=== PATIENT | male | born 1985 | race Caucasian/White ===

== ENCOUNTER 2018-12-24 21:57 | Emergency (ER) | payer BC, SELFPAY ==
[2018-12-24 21:59] VITALS: BP 129/79; PULSE 65; RESP 16; TEMP 35.9; O2SAT 99; BMI 21.7
--- NOTE | 2018-12-24 22:07 | ED.DCSUM_ITS ---
- ER Visit Summary Date of Service: 12/24/18 Chief Complaint: Left flank pain History of Present Illness: The patient is a 33 M with a history of kidney stones presents with acute onset left flank pain that happened 3 hours ago. He feels the exact same as prior kidney stones. Denies new or concerning features. Denies hematuria. He is nauseated but has not vomited. Current severity is moderate. Physical Examination: Those are within normal limits. He is in mild distress due to pain. Mild flank percussion tenderness on the left but no anterior abdominal tenderness. Test Results: None urinalysis is unremarkable. CT flank negative for ureteral stone. Small stone in the kidney but ureter looks clear. Emergency Department Course and Treatment: He was medicated and is pain-free on reexamination. CT negative for ureteral stone but it is possible that he passed one already. I cannot say with certainty. No secondary signs but his pain did start shortly prior to arrival. He looks well and feels well on reexamination. I feel he can safely be discharged home. Treatment Plan: Follow-up with urology Disposition: Stable, home Impression: Left flank pain, resolved This note was generated with [employer] software. It may contain incorrect words, spelling, and punctuation that were not noted in review of the chart prior to signing ED Disposition - Plan for ED Patient: Instructions: ED Stone Renal Passed Referrals: Ramakrishna Talavera MD [STAFF PHYSICIAN] -
[2018-12-24] MEDS: Ondansetron 4 MG/2 ML Vial IV (22:27)
[2018-12-24] MEDS: Morphine 4 MG/ML Syringe IV (22:27)
[2018-12-24] MEDS: Ketorolac 30 MG/ML Syringe IV (22:27)
[2018-12-24] MEDS: 0.9% Normal Saline 1,000 ML 250 ML IV (22:27)
--- NOTE | 2018-12-24 22:34 | CT_ITS ---
STUDY: CT ABDOMEN AND PELVIS WITHOUT CONTRAST REASON FOR EXAM: Male, 33 years old. Left flank pain beginning tonight. History of kidney stones with previous lithotripsy and ureteral stenting. RADIATION DOSAGE (If Supplied By Facility): CTDIvol = ( 6.33 ) mGy, DLP = ( 316.51 ) mGycm TECHNIQUE: Transaxial images were obtained from the dome of the diaphragm to the symphysis pubis without oral contrast, and without intravenous contrast. Sagittal and coronal images were reconstructed. Individualized dose optimization techniques were used for this CT. COMPARISON: September 06, 2017. FINDINGS: The visualized lung bases are unremarkable. The visualized portions of the heart are within normal limits. Normal liver. Normal gallbladder and extrahepatic biliary system. Normal spleen. There is 1.7 cm splenule in the splenic hilum. Normal pancreas. Normal bilateral adrenal glands. The right kidney is of normal size and cortical thickness. There are multiple renal calculi. The largest in the lower pole measures 3 mm. There is extrarenal pelvis without ureterectasis. The left kidney is of normal size and cortical thickness. There is a 3 mm calcification lower pole calyx. There is no hydronephrosis. Normal left ureter. Normal visualized stomach. Normal small intestine. Normal colon. The appendix is visualized and appears normal. Normal abdominal aorta. Normal inferior vena cava. Normal retroperitoneum. The urinary bladder is incompletely distended but grossly normal. Annual prostate and seminal vesicles. There is phlebolith left pelvis. There is no pelvic lymphadenopathy. No free air or free fluid is seen in the peritoneal cavity. There is an umbilical hernia of omental fat. The abdominal wall is otherwise unremarkable. Normal osseous structures. CT/Abdomen/Pelvis without Cont IMPRESSION: 1. Absence of the left ureteral stenting seen on the prior CT. There is a stable left renal calculus. 2. Multiple nodular obstructing right renal calculi essentially unchanged from prior study. 3. No evidence of acute intra-abdominal or pelvic abnormality. 4. No other major interval change. Electronically Signed: Jarrod Ma DO at 23:12 EST Tel [phone], Service support ,
[2018-12-24 22:40] LABS: Bacteria 0 SEEN /hpf (None Seen); Color, Urine Yellow (Yellow); Glucose, Dipstick Normal (Normal); Ketone-Dipstick Negative (Negative); Leukocyte Esterase-Dipstick Negative /ul (Negative); Mucous, Urine 0 SEEN /hpf (<or=2+); Nitrite-Dipstick Negative (Negative); Occult Blood-Urine Negative /ul (Negative); Protein-Dipstick Negative (Negative); Red Blood Cells-Urine 0 SEEN /hpf (0-5); Specific Gravity, Urine 1.015 (1.002-1.030); Squamous Epithelial Cells - UA 0 SEEN /hpf (0-5); Urine Bilirubin Dipstick Negative (Negative); Urine Clarity Clear (Clear); Urine Urobilinogen Normal (Normal)
[2018-12-24 22:50] LABS: White Blood Cells 0-5 SEEN /hpf (0-5)
[2018-12-24 23:38] VITALS: BP 98/72; PULSE 51; RESP 16; O2SAT 99
== END 2018-12-24 23:40 | disposition home or self-care (01) ==
LOC: ED 22:34
PROVIDERS: Emergency Provider Emergency Medicine
DX: R10.9 Unspecified abdominal pain (principal); R11.0 Nausea; M54.9 Dorsalgia, unspecified; Z87.442 Personal history of urinary calculi
CPT/HCPCS: 74176; 81001; 96361; 96374; 96375; 99283; J7030; A4216; J2405

== ENCOUNTER 2019-12-29 11:18 | Emergency (ER) | payer BC, SELFPAY ==
[2019-11-01 10:06] VITALS: BMI 21.7
[2019-12-29 11:18] VITALS: BP 122/86; PULSE 112; RESP 16; TEMP 36.1; O2SAT 98; BMI 22.6
--- NOTE | 2019-12-29 11:46 | RAD_ITS ---
STUDY: X-RAY - RIGHT SHOULDER REASON FOR EXAM: Male, 34 years old. fall. very painful shoulder TECHNIQUE: 4 view(s) of the shoulder. COMPARISON: None. FINDINGS: Normal glenohumeral articulation. There is no widening of the coracoclavicular distance. There is widening of the AC joint, but without displacement of the clavicle or widening of the coracoclavicular distance, consistent with a Type II acromioclavicular joint separation. Normal acromion. Normal humeral head and visualized proximal humerus. The soft tissue structures are unremarkable. Normal visualized pulmonary apex. RAD/Shoulder min 2 Views IMPRESSION: Grade 2 acromioclavicular joint separation. Electronically Signed: Fernando Botello MD at 12:34 EDT Tel , Service support ,
[2019-12-29] MEDS: Ondansetron ODT 4 MG Tablet PO (11:50)
[2019-12-29] MEDS: morphine 10 MG/ML Syringe SC (11:50)
--- NOTE | 2019-12-29 12:30 | ED.VIS.GEN ---
History of Present Illness Chief Complaint: Upper Extremity Injury Informant: Patient Onset: Today Maximum Severity: Mild Narrative: Right shoulder pain after fall today patient was running after she P inadvertently fell and landed directly on his right shoulder his pain directly over the shoulder, no head neck chest abdominal pain no past history other complaints Past Medical History - Allergies and Home Meds Allergies/Adverse Reactions: Allergies hydrocodone [From [place]] Adverse Reaction (Verified 12/24/18 21:59) Vomiting Primary Care Physician: Care Physician,No Primary [Primary Care Provider] - Past Medical History: None Smoking Status: Former smoker Review of Systems General: Denies: Chills, Fever, Sweats Eyes: Denies: Visual changes - bilaterally, Diplopia ENT: Denies: Rhinorrhea, Sore throat Cardiovascular: Denies: Chest pain, Palpitations Respiratory: Denies: Dyspnea, Cough, Dyspnea on exertion Gastrointestinal: Denies: Abdominal pain, Nausea, Vomiting, Diarrhea, Melena, Hematochezia Genitourinary: Denies: Dysuria, Hematuria, Frequency Musculoskeletal: Reports: Extremity Pain. Denies: Back pain Skin: Denies: Rash, Wounds Neurological: Denies: Headache, Weakness, Numbness Physical Exam Vital Signs/Narrative: Vital Signs Temp Pulse Resp BP Pulse Ox 12/29/19 11:18 97 F L 112 H 16 122/86 H 98 General: Well nourished, Well developed, No Acute Distress Head: Normocephalic, Atraumatic Eyes: Perrl, EOMI ENT: Moist mucous membranes, No rhinorrhea Neck: Supple, Nontender Cardiovascular: Regular rate, Regular rhythm, No murmurs Respiratory: No distress, CTA bilaterally, Chest nontender Abdomen: Soft, Nontender, Nondistended, Normal bowel sounds Back: Nontender, Normal Inspection Extremities: No edema, - - Patient has marked tenderness to the distal shoulder over the distal clavicle Skin: Normal color, No rash Neurological: Alert, Oriented x3, Cranial nerves II-XII grossly intact, Normal Strength, Normal Sensation Psychological: Normal affect, Normal Mood Diagnostic/Tx/Re-eval - Medical Decision Making Differentials extensive would certainly include fracture or other issues, He is medicated with morphine, x-ray of the shoulder shows what appears to be a grade 3 AC joint separation see those reports, he is fitted with a sling and swath, all that was discussed with him Ignacio Justin as rescue medicine and follow-up with his orthopedic surgeon of choice 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
[2019-12-29 13:21] VITALS: RESP 16
--- NOTE | 2019-12-29 13:22 | ED.RN ---
REVIEWED D/C INSTRUCTIONS, FOLLOW UP CARE, PRESCRIPTIONS, AND S/S THAT WOULD WARRANT A RETURN TO THE ED WITH PT. PT VERBALIZED AN UNDERSTANDING AND DENIES FURTHER QUESTIONS FOR THIS RN. PT SKIN P/W/D, RESP EVEN AND UNLABORED, PT A&O X 3, NO DISTRESS NOTED. PT AMBULATED OUT OF ED, GAIT STEADY.
== END 2019-12-29 13:23 | disposition home or self-care (01) ==
LOC: ED 12:59
PROVIDERS: Emergency Provider Emergency Medicine
DX: S43.101A Unspecified dislocation of right acromioclavicular joint, initial encounter (principal); W19.XXXA Unspecified fall, initial encounter; Y93.02 Activity, running; Y92.9 Unspecified place or not applicable; Z87.891 Personal history of nicotine dependence
CPT/HCPCS: 73030; 96372; 99283

== ENCOUNTER 2020-02-26 23:51 | Emergency (ER) | payer BC, SELFPAY ==
[2020-02-26 23:52] VITALS: BP 126/69; PULSE 65; RESP 18; TEMP 36.2; O2SAT 99; BMI 22.5
--- NOTE | 2020-02-27 00:23 | ED.DCSUM_ITS ---
- ER Visit Summary Date of Service: 02/27/20 Chief Complaint: Foreign body right eye History of Present Illness: The patient is a 34 M with foreign body sensation to his right eye. He was working on a dirt bike. No contact lens use. Tetanus up-to-date. Physical Examination: Slit-lamp exam showed a punctate foreign body at 9:00 over the right cornea. Visual acuity unremarkable. Otherwise exam unremarkable. Test Results: None performed Emergency Department Course and Treatment: Tetracaine and fluorescein applied. Foreign body noted as above. No other lesions noted. We are out of eye burrs. I attempted to remove the foreign body with a 30-gauge needle. Patient was anxious and did move his eye frequently. I made one attempt but it was unsuccessful. I did not make any further attempts. He will be referred to ophthalmology. He was started on erythromycin. Treatment Plan: As above Disposition: Discharge Impression: Foreign body right cornea This note was generated with [employer] dictation software. It may contain incorrect words, spelling, and punctuation that were not noted in review of the chart prior to signing ED Disposition - Plan for ED Patient: [facility] [Primary Care Provider] -
--- NOTE | 2020-02-27 00:24 | ED.DEP ---
ED Disposition - Plan for ED Patient: Instructions: ED Foreign Body Cornea W [place] Ring Referrals: Dung Dooley MD [STAFF PHYSICIAN] - (in the morning)
[2020-02-27] MEDS: Erythromycin Base 1 OPTH.TUBE 1 APPLIC RIGHT EYE (00:28)
[2020-02-27] MEDS: Tetracaine 0.5% Ophthalmic Bottle 1 DRP EACH EYE (00:29)
[2020-02-27] MEDS: Fluorescein 1 MG STRIP 1 STRIP EACH EYE (00:29)
[2020-02-27 00:33] VITALS: BP 122/70; PULSE 64; RESP 16; O2SAT 98
== END 2020-02-27 00:37 | disposition home or self-care (01) ==
LOC: ED 02-27 00:36
PROVIDERS: Emergency Provider Emergency Medicine
DX: T15.01XA Foreign body in cornea, right eye, initial encounter (principal); X58.XXXA Exposure to other specified factors, initial encounter; Y93.9 Activity, unspecified; Y92.9 Unspecified place or not applicable
CPT/HCPCS: 99283

== ENCOUNTER 2020-07-04 19:03 | Emergency (ER) | payer OTHER, BC, SELFPAY ==
[2020-07-04 19:05] VITALS: BP 137/68; PULSE 84; RESP 16; TEMP 36.3; O2SAT 98; BMI 23.3
--- NOTE | 2020-07-04 19:40 | ED.VISSUMM ---
- ER Visit Summary Date of Service: 07/04/20 Chief Complaint: Rash and itching History of Present Illness: The patient is a 34 M status post bladder stimulator [facility] yesterday. He is on Bactrim and started having a rash and itching. No tongue or lip swelling. No prior history. Another family member has a sulfa allergy. Physical Examination: Well-appearing young male. Vital signs stable afebrile. Pulse ox 90% on room air no signs hypoxia. HEENT exam unremarkable. No lip or tongue swelling. No trouble breathing swallowing. No drooling. No stridor. Neck nontender. Lungs clear to auscultation bilaterally. Heart regular rhythm no murmur. Abdomen soft nontender normal bowel sounds no peritoneal signs. Extremities moves all 4. Calves nontender. Left flank and back there is a bladder stimulator placed. Wound looks dry and clean. Neurologically is awake alert. Test Results: None Emergency Department Course and Treatment: Benadryl 50 mg. Stop the Bactrim. Treatment Plan: Keflex twice daily for 7 days. Stop the Bactrim most likely allergic to it. Benadryl as needed. Return if worse. Follow-[facility] with [facility]. Disposition: dc Impression: Acute allergic reaction secondary to Bactrim And is post recent bladder stimulator surgery This note was generated with [employer] dictation software. It may contain incorrect words, spelling, and punctuation that were not noted in review of the chart prior to signing ED Disposition - Plan for ED Patient: [facility]errals[facility] [Primary Care Provider] -
--- NOTE | 2020-07-04 19:43 | ED.DEP ---
ED Disposition - Plan for ED Patient: Disposition: Home or Assisted Living Instructions: ED General Allergic Reactions Prescriptions: Cephalexin [Keflex] 500 mg PO Q12 #14 cap Prescription Printed [facility]errals[facility] [Primary Care Provider] - As Needed Additional Instructions: Stop the Bactrim most likely you are allergic to sulfa drugs. Keflex twice a day for 7 days. Benadryl as needed for itching and allergic reaction. Follow-up with the physicians I did your procedure.
[2020-07-04] MEDS: DiphenhydrAMINE 25 MG Capsule 50 MG PO (19:57)
== END 2020-07-04 19:58 | disposition home or self-care (01) ==
PROVIDERS: Emergency Provider Emergency Medicine
DX: L27.0 Generalized skin eruption due to drugs and medicaments taken internally (principal); T36.8X5A Adverse effect of other systemic antibiotics, initial encounter; Y92.9 Unspecified place or not applicable; Z98.890 Other specified postprocedural states
CPT/HCPCS: 99283

== ENCOUNTER 2020-07-18 07:32 | Emergency (ER) | payer OTHER, BC, SELFPAY ==
[2020-07-18 07:34] VITALS: BP 117/77; PULSE 80; RESP 16; TEMP 36.3; O2SAT 99; BMI 21.9
--- NOTE | 2020-07-18 07:48 | CT_ITS ---
STUDY: CT BRAIN WITHOUT CONTRAST REASON FOR EXAM: Male, 34 years old. Cephalgia, headache, nausea/vomiting, photophobia since last night. Bladder pacemaker placed yesterday. RADIATION DOSAGE (If Supplied By Facility): CTDIvol = ( 44.99 ) mGy, DLP = ( 829.85 ) mGycm TECHNIQUE: Transaxial CT imaging of the brain was performed without administration of intravenous contrast material. Individualized dose optimization techniques were used for this CT. COMPARISON: No relevant priors. FINDINGS: Normal soft tissue structures. Normal calvarium. Normal size ventricles and extra-axial spaces for the patient''s age. Normal white matter tracts of the cerebral hemispheres. Normal basal ganglia and thalami. Normal brainstem. Normal cerebellum. There is no intracranial hemorrhage. There are no findings of an acute ischemic infarction. Mild mucosal thickening of the paranasal sinuses. CT/Brain/Head without Contrast IMPRESSION: Normal unenhanced CT scan of the brain. Electronically Signed: Jean-Claude Han MD at 8:40 EDT , Service support ,
--- NOTE | 2020-07-18 07:49 | ED.VISSUMM ---
- ER Visit Summary Date of Service: 07/18/20 Chief Complaint: [Headache] History of Present Illness: The patient is a 34 M [presents the emergency department complaint of a headache that started yesterday around 10 PM. Patient states that it did come on somewhat gradually. Patient states the headache waxes and wanes in intensity and it is throbbing. Currently rates it a 7 or 8 out of 10. Patient complains of photophobia as well as loud sounds bothering him. Patient's had nausea and has vomited several times. He has had migraines before but never quite like this. He describes the headache is diffuse. He denies any falls or head injuries. Incidentally he had a procedure yesterday [place] the [facility] to have a bladder pac[place] placed. He denies any difficulty urinating. Patient eyes fever or recent illness.] Physical Examination: [HEENT-PERRLA, EOMI. Cranial nerves II through XII grossly intact. TMs clear. Mucous membranes moist. No adenopathy. Cardiovascular-regular rate and rhythm without murmur or ectopy Lungs-clear to auscultation, chest wall stable without crepitus or subcu emphysema Abdomen-normoactive bowel sounds, soft, nontender, no rebound or rigidity, no peritoneal signs. Neuro nkjl-[id number] and heel lloyd testing within normal limits, negative Romberg, negative , Fundi benign Extremities-intact ?4, normal range of motion, normal pulses, atraumatic] Test Results: [CT scan of the brain without contrast was normal] Emergency Department Course and Treatment: [IV line established on arrival. Patient given Reglan, Benadryl, Toradol, and a liter normal saline fluid bolus. Patient's headache resolved.] Treatment Plan: [Patient advised to push fluids and follow-up with primary care physician in 3 to 5 days. Patient advised to return if worsening headache, difficulty with vision or speech or condition should worsen anyway.] Disposition: [Discharged] Impression: [Migrainous cephalgia] This note was generated with [employer] dictation software. It may contain incorrect words, spelling, and punctuation that were not noted in review of the chart prior to signing ED Disposition - Plan for ED Patient: Referrals: [facility] [Primary Care Provider] -
[2020-07-18] MEDS: Ketorolac 30 MG/ML Syringe IV (08:04)
[2020-07-18] MEDS: Metoclopramide 10 MG/2 ML Vial IV (08:06)
[2020-07-18] MEDS: DiphenhydrAMINE 50 MG/ML Syringe 25 MG IV (08:08)
[2020-07-18] MEDS: 0.9% Normal Saline 1,000 ML 1000 ML IV (08:09)
--- NOTE | 2020-07-18 08:24 | ED.RN ---
pt returned from ct scan. feels much improved
--- NOTE | 2020-07-18 08:46 | DCINST.ED_ITS ---
ED Disposition - Plan for ED Patient: Instructions: Preventing Migraine Headaches: Triggers, ED, Migraine (Classical) Referrals: [facility] [Primary Care Provider] - 3-5 Days
--- NOTE | 2020-07-18 08:46 | ED.DEP ---
ED Disposition - Plan for ED Patient: Instructions: Preventing Migraine Headaches: Triggers, ED, Migraine (Classical) Referrals: [facility] [Primary Care Provider] - 3-5 Days
[2020-07-18 09:06] VITALS: BP 110/65; PULSE 78; RESP 16; O2SAT 98
== END 2020-07-18 09:10 | disposition home or self-care (01) ==
LOC: ED 07:57
PROVIDERS: Emergency Provider Emergency Medicine
DX: G43.909 Migraine, unspecified, not intractable, without status migrainosus (principal); Z87.442 Personal history of urinary calculi; Z87.891 Personal history of nicotine dependence
CPT/HCPCS: 70450; 96361; 96374; 96375; 99283; J7030; A4216

== ENCOUNTER 2022-12-26 03:18 | Emergency (ER) | payer OTHER, SELFPAY ==
[2022-12-26 03:19] VITALS: BP 125/83; PULSE 67; RESP 18; TEMP 36.6; O2SAT 99; BMI 23.4
--- NOTE | 2022-12-26 03:22 | RAD_ITS ---
EXAM: XR RIGHT WRIST COMPLETE, 3 OR MORE VIEWS CLINICAL INDICATION: Trauma TECHNIQUE: Frontal, lateral and oblique views of the right wrist. This report was created using [employer] report generation technology. COMPARISON: None. FINDINGS: BONES/JOINTS: Small corticated bony structure adjacent to the ulnar styloid. No acute fracture. No subluxation. Normal alignment. Preservation of the joint space. No sclerotic or destructive changes observed. SOFT TISSUES: Unremarkable. No soft tissue swelling or gas. No radiopaque foreign body. RAD/Wrist min 3 Views IMPRESSION: Small corticated bony structure adjacent to the ulnar styloid. Differential diagnosis includes accessory ossicle, ununited ossification center, or old fracture. No definite acute fracture. Electronically Signed: Shubham Lovelcae MD at 4:30 EST ,
--- NOTE | 2022-12-26 03:36 | EDS_ITS ---
HPI History of Present Illness Chief Complaint: Upper Extremity Injury Narrative Narrative: About 1800 yesterday patient tripped and fell on outstretched hand. He has pain in the dorsal medial aspect of his right wrist. He is right-hand dominant. He has broken bones before but denies known prior injury to this hand or wrist. He never hit his head. No other injury or pain. The fall was due to a mechanical occurrence and was not syncope. No anticoagulation. Moving or pressing makes it worse and rest makes it better. PFSH PFS Medical History Kidney stone Panic attack Home Medications citalopram 40 mg tablet 60 mg PO DAILY 12/29/19 [History Last Taken 07/17/20] tamsulosin 0.4 mg capsule 0.4 mg PO DAILY 12/26/22 [History Last Taken Unknown] Allergy/AdvReac Type Severity Reaction Status Date / Time sulfamethoxazole Allergy Itching Verified 07/18/20 07:34 [From Bactrim] trimethoprim [From Bactrim] Allergy Itching Verified 07/18/20 07:34 hydrocodone [From [place]] AdvReac Vomiting Verified 12/24/18 21:59 Surgical History H/O lithotripsy Social History Smoking Status: Current every day smoker tobacco type: cigarettes ROS ROS ED Cardiovascular Cardiovascular: Denies chest pain, palpitations or racing heartbeat Gastrointestinal Gastrointestinal: Denies nausea or vomiting Musculoskeletal Musculoskeletal: Reports other Details: Wrist pain as in history of present illness. ; Denies back pain or neck pain Integumentary Denies Abrasions or rash Neurologic Neurologic: Denies paresthesias or weakness Hematologic/Lymphatic Hematologic/Lymphatic: Denies easy bleeding or easy bruising EXAM Physical Exam Narrative Exam Narrative: Patient awake alert sitting comfortably on the bed. No acute distress. HEENT shows no sign of trauma. Speech is normal. Neck full range of motion without pain. Cardiorespiratory show easy unlabored breathing without wheezing Skin shows no rash laceration skin tear mottling pallor or diaphoresis. Extremities show no deformity that is visible on that wrist. He does have some tenderness dorsally just distal to the ulnar styloid but the ulnar styloid itself is not tender. No tenderness out of the fingers or distal metacarpal area. No snuffbox tenderness. Capillary refill sensation are normal. No tenderness more proximally. Const Vital Signs: 12/26/22 03:19 Temperature 97.9 F Temperature Source Temporal Pulse Rate 67 Respiratory Rate 18 Blood Pressure 125/83 H Blood Pressure Mean 97 Pulse Ox 99 Oxygen Delivery Method Room Air MDM MDM MDM Narrative Medical decision making narrative: My independent interpretation of the patient's three-view x-ray shows an ulnar styloid break. But it looks to be older and calcified. Radiology's reading was similar. However, this is the region where the patient has pain so I think it is reasonable splinting this and having him follow-up. He should probably get a repeat x-ray in about 1 to 2 weeks. Discharge Plan Triage Chief Complaint: Upper Extremity Injury ED Provider: Bhupendra Smith Dx/Rx/DC Orders Clinical Impression: Contusion of right wrist, Fracture of ulnar styloid, Fall from slip, trip, or stumble Instructions: ED Possible Wrist Fracture Prescriptions: No Action citalopram 40 mg tablet 60 mg PO DAILY tamsulosin 0.4 mg Capsule 0.4 mg PO DAILY [facility] Care Provider[facility] Referrals: [facility] [Primary Care Provider] - 1-2 Weeks Disposition Disposition: Home, Self Care
== END 2022-12-26 04:54 | disposition home or self-care (01) ==
PROVIDERS: Emergency Provider Emergency Medicine; Visit Provider Emergency Medicine
DX: S60.211A Contusion of right wrist, initial encounter (principal); F17.210 Nicotine dependence, cigarettes, uncomplicated; W18.30XA Fall on same level, unspecified, initial encounter; S52.611A Displaced fracture of right ulna styloid process, initial encounter for closed fracture; F41.0 Panic disorder [episodic paroxysmal anxiety]; Z79.899 Other long term (current) drug therapy
CPT/HCPCS: 73110; 99283

== ENCOUNTER 2024-10-17 11:58 | Emergency (ER) | payer OTHER, SELFPAY ==
[2024-10-17 11:59] VITALS: BP 127/86; PULSE 87; RESP 16; TEMP 36.6; O2SAT 98; BMI 24.5
--- NOTE | 2024-10-17 12:02 | EKG12_ITS ---
Test Reason : CP Blood Pressure : */* mmHG Vent. Rate : 81 BPM Atrial Rate : 81 BPM P-R Int : 124 ms QRS Dur : 82 ms QT Int : 364 ms P-R-T Axes : 76 71 69 degrees QTcB Int : 422 ms Normal sinus rhythm Normal ECG Confirmed by DIVINE SEN, TRE ([id number]), commissioning editor IRVING CHAVEZ ([id number]) on 10/18/2024 9:43:25 AM Referred By: Confirmed By: TRE HASKINS MD
[2024-10-17 12:29] VITALS: O2SAT 99
--- NOTE | 2024-10-17 12:35 | RAD_ITS ---
HISTORY: chest pain. TECHNIQUE: XR Chest 1 View. COMPARISON: 06/24/2016. FINDINGS: CARDIOMEDIASTINAL BORDERS: Cardiac silhouette within normal limits in size. Mediastinal contour unremarkable. LUNGS: Radiographically clear. PLEURA: No pleural effusion or pneumothorax seen. OSSEOUS STRUCTURES: Unremarkable. RAD/Chest 1 View (Portable) IMPRESSION: No acute cardiopulmonary process identified. Electronically Signed: Anne-Marie Yadav MD at 13:46 EST ,
[2024-10-17 12:44] LABS: Absolute Lymphocyte Count 2.45 X10^3/uL (0.83-4.51); Absolute Neutrophil Count 3.1 X10^3/uL (2.0-7.7); Basophil# 0.05 X10^3/uL; Basophil% 0.8 % (0-1); Eosinophil# 0.17 X10^3/uL; Eosinophils% 2.6 % (0-5); Hematocrit 42.3 % (40-54); Hemoglobin 13.9 g/dL (13.0-16.5); Lymphocyte # 2.45 X10^3/ul (0.83-4.51); Lymphocyte % 37.1 % (19-41); Mean Corp Hgb Conc 32.9 g/dL (32-36); Mean Corpuscular Hgb 28.7 pg (27.0-32.0); Mean Corpuscular Volume 87.4 fL (80-94); Mean Platelet Vol. 8.6 fl (6.2-12.0); Monocyte# 0.78 X10^3/uL; Monocyte% 11.8 % (0-10); NRBC Flagged by Analyzer 0 % (0-5); Neutrophil # 3.13 X10^3/uL (2.7-7.7); Neutrophil % 47.2 % (47-70); Platelet Count 281 K/mm3 (150-450); RBC Distribution Width CV 12.6 % (11.6-14.6); RBC Distribution Width SD 40.1 fl (35.1-43.9); Red Blood Count 4.84 M/mm3 (4.6-6.2); White Blood Count 6.6 K/mm3 (4.4-11.0)
--- NOTE | 2024-10-17 12:45 | ED.VIS.CHEST ---
HPI History of Present Illness Chief Complaint: Chest Pain Informant: patient Narrative Narrative: 38-year-old male presenting to the emergency room with a chief complaint of chest pain. Patient states that during the night last night he had several episodes lasting about 30 minutes each. Developed a sharp stabbing pain just to the right of the midline in the lower anterior chest. Patient states when he woke this morning his right thumb was also numb. He states he has had some numbness in his hand intermittently when he wakes up but this seems to be going on longer than normal. He states his other fingers feel fine. He denies any motor loss. He denies any neck pain. No dyspnea. No belching nausea or vomiting. [facility] Medical History Panic attack Kidney stone Home Medications ?Medication ?Instructions ?Recorded ?Last Taken ?Type citalopram 40 mg tablet 60 mg PO DAILY 12/29/19 07/17/20 History bupropion HCl PO DAILY 10/17/24 Unknown History prazosin PO DAILY 10/17/24 Unknown History Allergy/AdvReac Type Severity Reaction Status Date / Time sulfamethoxazole (From Allergy Itching Verified 07/18/20 07:34 Bactrim) trimethoprim (From Bactrim) Allergy Itching Verified 07/18/20 07:34 hydrocodone (From [place]) AdvReac Vomiting Verified 12/24/18 21:59 Surgical History H/O lithotripsy Social History Smoking Status: Former smoker ROS ROS ED Constitutional Constitutional ED: Denies chills, fever(s) or weight loss Eyes Eyes: Denies change in vision or diplopia ENT ENT ED: Denies ear pain, rhinorrhea or sore throat Cardiovascular Cardiovascular: Reports as per HPI and chest pain; Denies orthopnea, palpitations or racing heartbeat Respiratory/Chest Respiratory/Chest: Denies cough, dyspnea or orthopnea Gastrointestinal Gastrointestinal: Denies abdominal pain, diarrhea, nausea or vomiting Genitourinary Genitourinary ED: Denies dysuria, hematuria or urinary frequency Musculoskeletal Musculoskeletal: Denies arthralgias or myalgias Integumentary Denies abscess or rash Neurologic Neurologic: Reports paresthesias; Denies headache(s) or weakness Psychiatric Psychiatric: Denies anxiety, depression, suicidal ideation or suicidal thoughts Endocrine Endocrinology: Denies polydipsia, polyphagia or polyuria Allergic/Immunologic Allergic/Immunologic ED: Denies mouth swelling, tongue swelling or urticaria EXAM Physical Exam Const Vital Signs: 10/17/24 11:59 10/17/24 12:29 10/17/24 12:35 Temperature 97.9 F Temperature Source Oral Pulse Rate 87 Respiratory Rate 16 Respiratory Effort Normal Blood Pressure 127/86 H Blood Pressure Mean 99 Pulse Ox 98 99 Oxygen Delivery Method Room Air Room Air 10/17/24 13:26 Temperature 98.5 F Temperature Source Pulse Rate 63 Respiratory Rate 12 Respiratory Effort Blood Pressure 119/78 Blood Pressure Mean 91 Pulse Ox 97 Oxygen Delivery Method Positive well nourished and well developed General Appearance ED: well developed and NAD HEENT Reports normocephalic, head/scalp atraumatic and moist mucous membranes Eyes PERRL and EOMs intact bilaterally Neck no lymphadenopathy, supple and no JVD Chest Wall inspection of chest normal and palpation of chest normal Resp normal respiratory effort and clear to auscultation bilaterally Cardio regular rate, regular rhythm and no murmurs GI normal to inspection, nondistended, normoactive bowel sounds and non-tender Palpation: soft Back/Spine no CVA tenderness and normal ROM Extremity normal to inspection Extremity Narrative: See neuroexam General Extremety ED: Negative for edema General Extremity: Negative for edema Neuro oriented x3 and CN's II-XII intact bilaterally Neuro Narrative: Patient has normal opposition and movement of the right thumb. He reports decreased sensation circumferentially of the left thumb and over the thenar eminence and on the dorsum of the right hand along the first medic carpal to the level of the snuffbox. There are no rashes. No muscle wasting noted. Sensorium / Orientation: alert Motor Exam: strength 5/5 throughout Psych mental status grossly normal Mood & Affect: Negative for depressed or tearful Skin no rashes or lesions noted and no wounds MDM MDM MDM Narrative Medical decision making narrative: Differential diagnosis includes cervical radiculopathy neuropraxia electrolyte abnormalities acute coronary syndrome cardiac dysrhythmia pericarditis pleural effusion pleurisy costochondritis doubt pulmonary embolism Patient is PERC negative. Therefore D-dimer not ordered. My independent interpretation of the chest x-ray is no acute process normal mediastinal silhouette. Troponin is less than 3. EKG is a normal sinus rhythm with a rate of 81. White count 6.6 hemoglobin 13.9 sodium potassium within normal limits glucose of 98. At this point I think the patient can be discharged home. His area of distribution of numbness is more indicative I feel of a peripheral nerve rather than a cervical radiculopathy or central process. I suspect that since it just started up this morning when he awoke and he went to bed feeling fine that he may have slept in a difficult position that resulted in it. I would recommend follow-up if not improving return if worsening or concerns patient is comfortable with this plan History & Record Review Discussion w/independent historian: Patient Lab Data Attestation: I reviewed the patient's lab results. Labs: Laboratory Results - last 24 hr 10/17/24 12:32 WBC 6.6 RBC 4.84 Hgb 13.9 Hct 42.3 MCV 87.4 MCH 28.7 MCHC 32.9 RDW Std Deviation 40.1 RDW Coeff of Angelica 12.6 Plt Count 281 MPV 8.6 Immature Gran % (Auto) 0.500 Neut % (Auto) 47.2 Lymph % (Auto) 37.1 [place] % (Auto) 11.8 H Eos % (Auto) 2.6 Baso % (Auto) 0.8 Absolute Neuts (auto) 3.1 Absolute Lymphs (auto) 2.45 Nucleated RBC % 0 Sodium 136 Potassium 3.9 Chloride 106 Carbon Dioxide 28.0 Anion Gap 2 L BUN 13 Creatinine 1.05 Estim Creat Clear Calc 108.73 Est GFR (MDRD) Af Amer 100 Est GFR (MDRD) Non-Af 83 BUN/Creatinine Ratio 12.4 Glucose 98 Calcium 9.0 Troponin I High Sens < 3 L EKG Initial EKG: Attestation: I personally reviewed and interpreted this EKG as follows: Comments: Normal sinus rhythm ventricular rate of 81 bpm. Discharge Plan Triage Chief Complaint: Chest Pain ED Provider: Chris Reddy Dx/Rx/DC Orders Clinical Impression: Chest pain, Paresthesia of thumb of right hand Instructions: ED Chest Pain, Noncardiac, ED Paraesthesias Prescriptions: No Action citalopram 40 mg tablet 60 mg PO DAILY prazosin PO DAILY bupropion HCl [Wellbutrin SR] PO DAILY [facility] [Primary Care Provider] - As Needed Print Language: Lithuanian Disposition Disposition: Home, Self Care
[2024-10-17 13:02] LABS: Anion Gap 2 (5-15); BUN 13 mg/dL (7-18); BUN/Creat Ratio 12.4 RATIO (10-20); Chloride 106 mmol/L (98-107); Creatinine, Serum 1.05 mg/dL (0.70-1.30); EST Glomerular Filtration Rate 83 mL/min (>60); Est Glom Filt Rate - Afr Amer 100 mL/min (>60); Estimated Creatinine Clearance 108.73 ml/min; Glucose 98 mg/dL (74-106); Potassium 3.9 mmol/L (3.5-5.1); Sodium Level 136 mmol/L (136-145); Troponin-I HS (w/2H Reflex) < 3 pg/mL (3.0-78.0)
[2024-10-17 13:26] VITALS: BP 119/78; PULSE 63; RESP 12; TEMP 36.9; O2SAT 97
[2024-10-17 14:35] LABS: Reflex Troponin-HS? (from REC) Y
== END 2024-10-17 13:39 | disposition home or self-care (01) ==
PROVIDERS: Emergency Provider Emergency Medicine; Visit Provider Emergency Medicine
DX: R07.9 Chest pain, unspecified (principal); R20.2 Paresthesia of skin; Z87.891 Personal history of nicotine dependence
CPT/HCPCS: 71045; 80048; 84484; 85025; 93005; 99284; A4216

== ENCOUNTER 2025-06-14 14:25 | Emergency (ER) | payer OTHER, SELFPAY ==
[2025-06-14] VITALS (17 sets, daily range): BP systolic 102–127; BP diastolic 56–81; PULSE 59–108; RESP 13–20; TEMP 36.6; O2SAT 96–100; BMI 25.3
--- NOTE | 2025-06-14 15:04 | ED.VIS.CHEST ---
HPI History of Present Illness Chief Complaint: Palpitations [facility] Medical History Panic attack Kidney stone Home Medications ?Medication ?Instructions ?Recorded ?Last Taken ?Type citalopram 40 mg tablet 60 mg PO DAILY 12/29/19 07/17/20 History bupropion HCl PO DAILY 10/17/24 Unknown History prazosin PO DAILY 10/17/24 Unknown History Allergy/AdvReac Type Severity Reaction Status Date / Time sulfamethoxazole (From Allergy Itching Verified 07/18/20 07:34 Bactrim) trimethoprim (From Bactrim) Allergy Itching Verified 07/18/20 07:34 hydrocodone (From [place]) AdvReac Vomiting Verified 12/24/18 21:59 Surgical History H/O lithotripsy Social History Smoking Status: Former smoker EXAM Physical Exam Const Vital Signs: 06/14/25 14:26 06/14/25 15:26 06/14/25 15:42 Temperature 98 F Temperature Source Oral Pulse Rate 108 H 90 Respiratory Rate 17 Blood Pressure 106/68 119/78 Blood Pressure Mean 80 91 Pulse Ox 97 96 Oxygen Delivery Method Room Air Room Air 06/14/25 16:05 06/14/25 16:15 06/14/25 16:30 Temperature Temperature Source Pulse Rate 86 80 76 Respiratory Rate 19 H 18 17 Blood Pressure 107/64 115/72 Blood Pressure Mean 78 84 Pulse Ox 96 98 99 Oxygen Delivery Method 06/14/25 16:45 06/14/25 17:00 06/14/25 17:15 Temperature Temperature Source Pulse Rate 78 74 65 Respiratory Rate 19 H 16 18 Blood Pressure 127/56 H 106/64 106/73 Blood Pressure Mean 77 77 84 Pulse Ox 97 99 98 Oxygen Delivery Method 06/14/25 17:30 06/14/25 17:45 06/14/25 18:00 Temperature Temperature Source Pulse Rate 61 63 73 Respiratory Rate 13 14 20 H Blood Pressure 102/67 111/70 122/79 H Blood Pressure Mean 80 82 92 Pulse Ox 100 100 99 Oxygen Delivery Method 06/14/25 18:24 Temperature 98 F Temperature Source Pulse Rate 73 Respiratory Rate 20 H Blood Pressure 122/79 H Blood Pressure Mean 93 Pulse Ox 99 Oxygen Delivery Method [facility] Narrative Medical decision making narrative: HISTORY OF PRESENT ILLNESS: Chief complaint: Palpitations 39-year-old male history of SVT noted palpitations and shortness of breath prior to arrival. Per EMS patient is in sinus tachycardia. 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 Patient notes transient chest pain, shortness of breath and palpitations which resolved spontaneously. Denies any symptoms currently. Denies any recent nausea or vomiting. Denies any recent bleeding diathesis. Denies any recent leg swelling. No cough fever chills The patient denies recent surgery in the last 4 weeks or immobilization in the last 3 days, denies previous diagnosis of DVT or PE, hemoptysis, unilateral leg swelling or malignancy with treatment the last 6 months or palliative. No estrogen use noted. REVIEW OF SYSTEMS: Pertinent positives: Palpitations, shortness of breath Pertinent negatives: As per HPI PHYSICAL EXAM: Nursing triage notes reviewed, Vital signs reviewed Constitutional: please see [facility] HENT: MMM Eyes: Pupils equal round and reactive to light, Extraocular muscles intact Neck: No stridor, no JVD, full neck ROM Lungs: Clear to auscultation, No wheezing or rales. No increased work of breathing, no conversational dyspnea, no accessory muscle use, no nasal flaring. No respiratory distress noted Heart: Regular rate and rhythm, No murmurs, No rubs and No gallops, 2+ distal pulses (radial, femoral, posterior tibial) in all extremities Abdomen: Soft, there is no tenderness, rigidity, rebound or guarding, no obvious peritoneal signs, no palpable pulsatile abdominal masses, no auscultated abdominal bruit : No CVAT Extremities: No edema Neuro: No new focal neurological deficits, cranial nerves II through XII intact, 5/5 strength in all present extremities. Intact sensation to light touch in all present extremities, 2+ reflexes bilateral patella tendons. Skin: No rash or lesions noted MEDICAL DECISION MAKING: Chief Complaint: please see HPI External records reviewed: Reviewed prior cardiovascular testing Factors affecting care: SVT Social determinants of health: Denies illicit drug use History obtained from others: EMS Consults: Cardiology (Dr. Aguilar) [facility] Narrative: Patient was initially hemodynamically stable, afebrile nontoxic-appearing. Exam without focal cardiopulmonary abnormality I considered the following differential diagnosis: Arrhythmia electrolyte disturbance, anemia, PE, ACS,, dehydration, pneumonia, thyroid dysfunction I obtained a broad lab and imaging to further determine if the patient was suffering from a life-threatening etiology. Initially resuscitated the patient 1 L normal saline While I considered pulmonary embolism as a potential etiology the patient has a low risk Wells score and as such Evalose patient for PE. No indication for CTA or D-dimer at this time. ALL IMAGES (IF OBTAINED) HAVE BEEN PERSONALLY REVIEWED AND INTERPRETED BY MYSELF. I have personally reviewed the patient's chest x-ray. Chest x-ray is unremarkable for pulmonary edema, pneumothorax, pneumonia or focal cardiopulmonary abnormality. Initial troponin 9, delta troponin 20 this technically rules in however the patient has no chest pain will consult cardiology TSH within normal limits, free T3, free T4 within normal limits CBC without leukocytosis, severe anemia, no thrombocytopenia. CMP without significant electrolyte imbalance, there is signs of metabolic acidosis and endorgan hypoperfusion with low bicarb and elevated anion gap. These did not clinically relevant likely related to dehydration. LFTs show no evidence of hepatobiliary pathology. EKG with normal sinus rhythm rate 95, normal axis, normal intervals, no STEMI The patient's troponin values ruled in based on [facility]'s high-sensitivity troponin call however he was chest pain-free. I suspect the troponin elevation is related to palpitations and possible SVT. Did discuss with the cardiology Dr. Aguilar who agreed with my impression and noted the patient safe for discharge. Strict return precautions will be discussed. Outpatient follow-up will be arranged. The patient and/or family, caregivers express understanding. The patient and/or family, caregivers agrees with the plan. Shared decision making: I will have a discussion with the patient and or visitors regarding risk/benefits of further testing or admission. They will be made aware of of the risk/benefits inherent in this decision they will be given the opportunity to voice understanding. Total critical care time today provided was at least 0 minutes. This excludes separately billable procedures. Critical care time (if documented) is secondary to the patient having high probability of clinically significant/life threatening deterioration in the patient's condition which required my urgent intervention. Impression: 1. Palpitation 2. Chest tightness Dispo: Discharge home This note was generated with ENJOREation software. It may contain incorrect words, spelling, and punctuation that were not noted in review of the chart prior to signing. Lab Data Labs: Laboratory Results - last 24 hr 06/14/25 06/14/25 14:33 17:10 WBC 6.4 RBC 4.78 Hgb 14.0 Hct 40.5 MCV 84.7 MCH 29.3 MCHC 34.6 RDW Std Deviation 38.5 RDW Coeff of Angelica 12.5 Plt Count 290 MPV 9.7 Immature Gran % (Auto) 0.300 Neut % (Auto) 49.9 Lymph % (Auto) 38.3 [place] % (Auto) 9.5 Eos % (Auto) 1.4 Baso % (Auto) 0.6 Absolute Neuts (auto) 3.2 Absolute Lymphs (auto) 2.46 Nucleated RBC % 0 Sodium 140 Potassium 3.8 Chloride 102 Carbon Dioxide 16.6 L Anion Gap 21 H BUN 15 Creatinine 1.25 H Estim Creat Clear Calc 90.42 Est GFR (MDRD) Non-Af 74 BUN/Creatinine Ratio 11.8 Glucose 104 H Calcium 10.0 Total Bilirubin 0.23 AST 23 ALT 21 Alkaline Phosphatase 56 Troponin T High Sens 9 Troponin T Hi Sens 2 Hr 20 Total Protein 7.2 Albumin 4.6 Globulin 2.6 Albumin/Globulin Ratio 1.8 TSH 1.410 Free T4 1.00 Free T3 pg/dL 3.1 Radiography Diagnostic Testing: Clinical Impression(s) from Imaging Studies Chest X-Ray 06/14/25 15:32 IMPRESSION: No acute process in the chest Reading Location: [facility] Discharge Plan Triage Chief Complaint: Palpitations ED Provider: Beto Rivera Dx/Rx/DC Orders Instructions: ED Heart Palpitations Prescriptions: No Action citalopram 40 mg tablet 60 mg PO DAILY prazosin PO DAILY bupropion HCl [Wellbutrin SR] PO DAILY [facility] Provider[facility] Referrals[place] [facility] [Primary Care Provider] - Activity Restrictions/Additional Instructions: Thank you for trusting us with your care today! Your labs images are reassuring. Specifically no definitive sign of heart damage, thyroid damage, significant kidney or electrolyte maladies, significant signs of infection inflammation. Your presentation is likely secondary to the [id number] causes of palpitations chest pain and shortness of breath. Please take Tylenol (2 pills, 650 mg), ibuprofen (2 pills, 400 mg) every 6 hours as needed for pain and fever control. Please return to the emergency department if your symptoms change or worsen. Please follow with your primary care physician for further outpatient evaluation and management. Print Language: Danish Disposition Disposition: Home, Self Care
--- OUTSIDE RECORDS SUMMARY | 2025-06-14 15:21 | XMS RPT_ITS | CCD ---
Author Organization [facility] Providers Care Consulting Psychiatrist Name Role Phone No, Physician Primary Care Provider UnavailDAINA Kohler Attending Unavaila ble RIGOBERTO, PHYSICIAN Primary Care Unavailable DAINA VERONICA Admitting Unavaila ble PROVIDER, UNKNOWN Admitting Unavailable ELMIRA ORELLANA Referring Unavailable PROVIDER, UNKNOWN Attending Unavailable ELMIRA ORELLANA Referring Unavailable PROVIDER, UNKNOWN Attending Unavailable PROVIDER, UNKNOWN Admitting Unavailable Mirna Rivera PA-C Primary Care Provider [phone] LAURA MARIA Primary Care Unavail able MAITE HADDAD Attending Unavailab LAURA Raines Primary Care Unavail able MAITE HADDAD Attending Unavailab Mirna Sullivan PA-C Primary Care Provider Unavailable Primary Care Provider Unavailabl BHAVIK Robles Attending Unavailable Unavailable Primary Care [place] Primary Care Unavailable Chris Reddy Attending Unavailable SELF Referring Unavailable PAULA JASSO Attending Unavailable Allergies Allergy Classification Reported Allergen(s) Allergy Type Date of Onset Reaction(s) Facility (2 sources) HYDROcodone; Translations: [HYDROCODONE] Drug Allergy 9 [facility] (2 sources) Sulfamethoxazole; Translations: [SULFAMETHOXAZOLE] Drug Allergy 0 [facility] (1 source) Sulfamethoxazole / Trimethoprim; Translations: [SULFAMETHOXAZOLE-TR IMETHOPRIM] Drug Allergy 0 [facility] (2 sources) Trimethoprim; Translations: [TRIMETHOPRIM] Drug Allergy 0 [facility] (2 sources) Acetaminophen / HYDROcodone; Translations: [HYDROCODONE-ACETAMI NOPHEN] Drug Allergy 4 Nausea/vomitin g [facility] Medications Current Medications Medication Drug Class(es) Dates Sig (Normalized) Sig (Original) amoxicillin 875 mg oral tablet (1 source) Penicillin-class Antibacterial Start: 07-13-2023 End: 07-20-2023 take 1 tablet by mouth twice daily amoxicillin (AMOXIL) 875 mg tablet Take 1 tablet by mouth twice daily for 7 days. 14 tablet 0 07/13/2023 07/20/2023 Active Comment on above: Take 1 tablet by presley twice daily for 7 days. amoxicillin 875 mg / clavulanate 125 mg oral tablet (1 source) Penicillin-class Antibacterial Start: 11-04-2023 End: 11-11-2023 take 1 tablet by mouth twice daily amoxicillin-pot clavulanate (Augmentin) 875-125 mg tablet Indications: Acute non-recurrent maxillary sinusitis Take 1 tablet (875 mg) by mouth 2 times a day for 7 days. 14 tablet 0 11/04/2023 11/11/2023 Active busPIRone hydrochloride 15 mg oral tablet (4 sources) Start: 05-26-2023 take 2 tablets by mouth once daily busPIRone (BUSPAR) 15 mg tablet Take 30 mg by mouth once daily. 05/26/2023 Active busPIRone (Buspa r) 30 mg tablet Take by mouth 2 times a day. 0 Active Comment on above: Take 30 mg by mouth once daily. ciprofloxacin 3 mg/ml / dexamethasone 1 mg/ml otic suspension (1 source) Corticosteroid, Quinolone Antimicrobial Start: 04-30-20 25 ciprofloxacin-dexAM ETHasone (CIPRODEX) 0.3-0.1 % otic suspension Indications: Acute otitis externa of right ear, unspecified type Use 4 drops in the right ear two times a day. 7.5 mL 04/30/2025 Active citalopram 20 mg oral tablet (5 sources) Serotonin Reuptake Inhibitor take 2 tablets by mouth once daily citalopram (CELEXA) 20 mg tablet Take 40 mg by mouth once daily. Active take 1 tablet by mouth once adam y citalopram (CeleXA) 40 mg tablet Take 1 tablet (40 mg) by mouth once daily. 0 Active Comment on above: Take 40 mg by mouth once daily. 2 ml dupilumab 150 mg/ml auto-injector (3 sources) Interleukin-4 Receptor alpha Antagonist Start: 08-01-2023 dupilumab (DUPIXENT PEN) 300 mg/2 mL pen injection 08/01/2023 Active famotidine 20 mg oral tablet (2 sources) Histamine-2 Receptor Antagonist Start: 03-28-2020 End: 04-12-2020 take 1 tablet by mouth twice daily famotidine (PEPCID) 20 MG tablet Take 1 (one) tablet (20 mg total) by mouth 2 (two) times a day for 15 days . 30 tablet 0 03/28/2020 04/12/2020 Active Start: 03-28-2020 End: 03-28-2020 famotidine (PEPCID) injectio n 20 mg hydrOXYzine pamoate 25 mg oral capsule (3 sources) Antihistamine Start: 05-26-2023 take 1 capsule by mouth once daily as needed hydrOXYzine pamoate (VISTARIL) 25 mg capsule Take 25 mg by mouth once daily as needed. 05/26/2023 Active Comment on above: Take 25 mg by mouth once daily as needed. permethrin 50 mg/ml topical cream (1 source) Pyrethroid Start: 01-12-2022 End: 01-12-2022 permethrin (ELIMITE) 5 % cream Indications: Rash Apply 1 application to affected area one time only for 1 dose. massage into skin from neck to feet, leave on 8-12hrs, wash off; Info: repeat 2wks if live mites persist. Itching may persist after effective treatment. 60 g 1 01/12/2022 01/12/2022 Active Comment on above: Apply 1 application to affected area one time only for 1 dose. massage into skin from neck to feet, leave on 8-12hrs, wash off; Info: repeat 2wks if live mites persist. Itching may persist after effective treatment. prazosin 1 mg oral capsule (5 sources) alpha-Adrenergic Clay take 1 capsule by mouth once daily prazosin (MINIPRESS) 1 mg cap Take 1 mg by mouth once daily. Active Comment on above: Take 1 mg by mouth o nce daily. triamcinolone acetonide 1 mg/ml topical cream (1 source) Corticosteroid Start: 09-16-2024 End: 09-23-2024 triamcinolone acetonide (KENALOG) 0.1 % cream Apply 1 application to affected area three times a day for 7 days. Apply sparingly to area for rash/itching. 80 g 09/16/2024 09/23/2024 Active Completed/Discontinued Medications Medication Drug Class(es) Dates Sig (Normalized) Sig (Original) [id number] 200 actuat albuterol 0.09 mg/actuat metered dose inhaler (4 sources) beta2-Adrenergic Agonist Start: 08-04-2019 End: 04-30-2025 take 2 puff(s) by inhalation every four hours as needed albuterol HFA (PROAIR HFA) 90 mcg/actuation inhaler Inhale 2 Puffs as instructed every 4 hours as needed. 1 Inhaler 08/04/2019 04/30/2025 Discontinued (Course of therapy completed) Comment on above: Inhale 2 Puffs as in structed every 4 hours as needed. fluticasone propionate 0.05 mg/actuat metered dose nasal spray (6 sources) Corticosteroid Start: 06-25-2018 End: 04-30-2025 take 2 spray(s) by mouth once daily fluticasone (FLONASE) 50 mcg/actuation nasal spray Indications: Dysfunction of right eustachian tube Use 2 Sprays in each nostril once daily. Rinse mouth after use. 1 Each 07/19/2023 04/30/2025 Discontinued (Course of therapy completed) Comment on above: Use 2 Sprays in each nostril once daily. Rinse mouth after use. 1 ml ketorolac tromethamine 30 mg/ml injection (1 source) Nonsteroidal Anti-inflammatory Drug, Cyclooxygenase Inhibitor Start: 03-28-2020 End: 03-28-2020 ketorolac (TORADOL) injection 15 mg lidocaine viscous 2% 10 mL and maalox plus 30 mL (GI COCKTAIL) 40 mL solution (1 source) Start: 03-28-2020 End: 03-28-2020 lidocaine viscous 2% 10 mL and maalox plus 30 mL (GI COCKTAIL) 40 mL solution multivitamin tablet (4 sources) End: 04-30-2025 take 1 tablet by mouth once daily multivitamin tablet Take 1 tablet by mouth once daily. 04/30/2025 Discontinued (Course of therapy completed) take 1 tablet by mouth once adam y multivitamin tablet Take 1 tablet by mouth once daily. Active take 1 tablet by mouth once adam y multivitamin tablet Take 1 tablet by mouth once daily. 0 Active Comment on above: Take 1 tablet by presley th once daily. 2 ml ondansetron 2 mg/ml injection (1 source) Serotonin-3 Receptor Antagonist Start: 03-28-2020 End: 03-28-2020 ondansetron (ZOFRAN) injection 4 mg predniSONE 10 mg oral tablet (2 sources) Start: 09-16-2024 End: 04-30-2025 predniSONE (DELTASONE) 10 mg tablet Take 4 tabs daily for 3 days, then 2 tabs daily for 3 days, then 1 tab daily for 3 days with food. 21 tablet 09/16/2024 04/30/2025 Discontinued (Course of therapy completed) 1000 ml sodium chloride 9 mg/ml injection (2 sources) Start: 03-28-2020 End: 03-28-2020 sodium chloride 0.9% (NS) bolus 500 mL Start: 03-28-2020 End: 03-28-2020 sodium chloride (PF) (NS) fl ush 5 mL tamsulosin hydrochloride 0.4 mg oral capsule (4 sources) alpha-Adrenergic Clay End: 04-30-2025 take 1 capsule by mouth once daily at bedtime tamsulosin ER (FLOMAX) 0.4 mg cap Take 0.4 mg by mouth daily at bedtime. 04/30/2025 Discontinued (Course of therapy completed) Comment on above: Take 0.4 mg by mouth daily at bedtime. Problems Problem Classification Problem Date Documented Da te Episodic/Chronic Anxiety disorders (4 sources) Anxiety; Translations: [Anxiety disorder, unspecified] Onset: 01-28-2019 01-28-2019 Chronic Gastritis and duodenitis (1 source) Acute gastritis; Translations: [Acute gastritis without hemorrhage, unspecified gastritis type] Episodic Nonspecific chest pain (1 source) Chest pain, unspecified; Translations: [Chest pain, unspecified] Onset: 11-13-2024 Episodic Other ear and sense organ disorders (1 source) Acute otitis externa of right ear; Translations: [Unspecified acute noninfective otitis externa, right ear] 04-30-2025 Episodic Other ear and sense organ disorders (1 source) Unspecified acute noninfective otitis externa, right ear; Translations: [Acute otitis externa of right ear, unspecified type] Onset: 04-30-2025 Episodic Other skin disorders (2 sources) Eruption; Translations: [Rash and other nonspecific skin eruption] Episodic Other upper respiratory infections (3 sources) Acute maxillary sinusitis; Translations: [Acute maxillary sinusitis, unspecified] Onset: 11-04-2023 11-04-2023 Episodic Otitis media and related conditions (1 source) Acute non-suppurative otitis media - serous; Translations: [Acute serous otitis media, right ear] 07-13-2023 Episodic Residual codes; unclassified (4 sources) Obstructive sleep apnea syndrome; Translations: [Obstructive sleep apnea (adult) (pediatric)] Onset: 01-28-2019 01-28-2019 Chronic Results Test Name Value Interpretation Reference Range Facility [facility] 04-30-2025 CNOV Office Visit ([facility] ) ----- VIC VAIL ([id number]) 1985 M Date Time Provider Department 04/30/25 3:40 PM PAULA JASSO [facility] During your visit today, we recorded the following information about you: Temperature Pulse Respiration Blood pressure 98.2 degrees 63/minute 18/minute 147/84 Weight 88.9 kg Deonte Cowart LPN 04/30/2025 3:53 PM Signed Patient is here with C/O right ear pain x 1 hour. His ear popped when he jumped in the devi. Deonte Cowart LPN April 30, 2025 3:53 PM Paula Jasso MD 04/30/2025 4:05 PM Signed Viczahida Khannadolly is a 39 year old male who presents with Ear Pain HPI Patient is a 39-year-old male who presents with right-sided acute ear pain. PAST MEDICAL HISTORY Diagnosis Date Bone spur of other site Right shoulder Kidney stone Kidney stones ACTIVE PROBLEM LIST Lashanda (Obstructive Sleep Apnea) Anxiety Current Outpatient Medications Medication Sig Dispense Refill dupilumab (DUPIXENT PEN) 300 mg/2 mL pen injection busPIRone (BUSPAR) 15 mg tablet Take 30 mg by mouth once daily. hydrOXYzine pamoate (VISTARIL) 25 mg capsule Take 25 mg by mouth once daily as needed. prazosin (MINIPRESS) 1 mg cap Take 1 mg by mouth once daily. citalopram (CELEXA) 20 mg tablet Take 40 mg by mouth once daily. ciprofloxacin-dexAMETHaso ne (CIPRODEX) 0.3-0.1 % otic suspension Use 4 drops in the right ear two times a day. 7.5 mL 0 No current facility-administered medications for this visit. Social History Tobacco Use Smoking status: Former Current packs/day: 0.00 Types: Cigarettes Quit date: 07/09/2017 Years since quittin.8 Smokeless tobacco: Former Tobacco comments: quit 6 wks ago (06/2017) Vaping Use Vaping status: Former Substance Use Topics Alcohol use: Yes Comment: monthly Drug use: No Alcohol Use: Yes (monthly) Tobacco Use: Types: Cigarettes FAMILY HISTORY Problem Relation Age of Onset other (blood clot) Mother Coronary Artery Disease Maternal Grandfather Breast Cancer Paternal Grandmother ROS Per HPI. Otherwise negative. BP 147/84 Pulse 63 Temp (Src) 98.2 (Temporal) Resp 18 Wt 196 lb (88.9kg) SpO2 98% Physical Exam General: Patient appears well and nontoxic appearing. CV: Regular rate and rhythm. HEENT: Pupils are equal round and reactive to light accommodation. There is no bulging of the tympanic membrane of the right ear. He does have significant erythema and pain with otoscope manipulation of the right ear canal. Procedures ASSESSMENT/PLAN: 1. Acute otitis externa of right ear, unspecified type - ICD9: 380.10, ICD10: H60.501 Patient's tympanic membrane is intact. He does have significant pain in the ear canal, so I will provide him with Ciprodex twice daily for the next 7 days. Red flag signs and symptoms to include significant worsening of his symptoms was discussed as a reason to return to this urgent care for reevaluation. Patient voiced understanding and agreement with the above plan was discharged in stable condition. - CIPROFLOXACIN 0.3 %-DEXAMETHASONE 0.1 % EAR DROPS,SUSPENSION Paula Jasso MD Referring Provider: SELF [[id number]] Allergies As of Date: 04/30/2025 (No Known Allergies) Date Reviewed: 04/30/2025 Reviewed by: Deonte Cowart LPN - Fully Assessed Reason for Visit: Ear Pain [817] Primary Visit Diagnosis:Acute otitis externa of right ear, unspecified type [H60.501] Order(s):ciprofloxacin-de xAMETHasone (CIPRODEX) 0.3-0.1 % otic suspensionUse 4 drops in the right ear two times a day.Disp: 7.5 mLRfl: 0 Prescriptions as of 04/30/2025 - ciprofloxacin-dexAMETHaso ne (CIPRODEX) 0.3-0.1 % otic suspension Use 4 drops in the right ear two times a day. - dupilumab (DUPIXENT PEN) 300 mg/2 mL pen injection - busPIRone (BUSPAR) 15 mg tablet Take 30 mg by mouth once daily. - hydrOXYzine pamoate (VISTARIL) 25 mg capsule Take 25 mg by mouth once daily as needed. - prazosin (MINIPRESS) 1 mg cap Take 1 mg by mouth once daily. - citalopram (CELEXA) 20 mg tablet Take 40 mg by mouth once daily. Problem List As Of Date 04/30/2025 Noted Resolved LASHANDA (obstructive sleep apnea) [G47.33] 01/28/2019 Anxiety [F41.9] 01/28/2019 Prescriptions ordered this encounter Disp Refills Start End CIPROFLOXACIN 0.3 %-DEXAMETHASONE 0.* 7.5 * 0 04/30/2025 Route: AD Sig: Use 4 drops in the right ear two times a day. Medications Discontinued During This Encounter Prescriptions - fluticasone (FLONASE) 50 mcg/actuation nasal spray (Discontinued) Use 2 Sprays in each nostril once daily. Rinse mouth after use. - predniSONE (DELTASONE) 10 mg tablet (Discontinued) Take 4 tabs daily for 3 days, then 2 tabs daily for 3 days, then 1 tab daily for 3 days with food. - multivitamin tablet (Discontinued) Take 1 tablet by mouth once daily. - albuterol HFA (PROAIR HFA) 90 mcg/actuation inhaler (Discontinued) Inhale 2 Puffs as in (more content not included)... [facility] 12 Lead EKGon 10-17-2024 12 Lead EKG [facility] [address] [place] [address] 12 Lead EKG 10/17/24 1205 MR#: [id number] Acct: [id number] Name: VIC VAIL Rep #: [id number] : 1985 38 From: Javier Zelaya MD Attending Dr: Status: DEP ER Ordering Dr: Chris Reddy DO Date: 10/17/24 Location: ED Sex: M C Admitted: Test Reason : CP Blood Pressure : */* mmHG Vent. Rate : 81 BPM Atrial Rate : 81 BPM P-R Int : 124 ms QRS Dur : 82 ms QT Int : 364 ms P-R-T Axes : 76 71 69 degrees QTcB Int : 422 ms Normal sinus rhythm Normal ECG Confirmed by DIVINE SEN, JAVIER ([id number]), editor book IRVING CHAVEZ ([id number]) on 10/18/2024 9:43:25 AM Referred By: Confirmed By: JAVIER ZELAYA MD 10/18/24 0943 Date Javier Zelaya MD CC: Dr. Chris Reddy DO; [facility] Signed Normal [facility] Basic Metabolic Profile (BMP )on 10-17-2024 BUN/CRE 12.4 RATIO Normal 10-20 [facility] Comment on above: Order Comment: 1 Y Performed By: #### L 100.0100, L501.5425, L500.2500 #### [facility] [address] [place], [address] CA,Total 9.0 mg/dL Normal 8.5-10.1 [facility] Comment on above: Order Comment: 1 Y Performed By: #### L 100.0100, L501.5425, L500.2500 #### [facility] [address] [place], [address] Chloride [Moles/Vol] 106 mmol/L Normal 98-107 [facility] Comment on above: Order Comment: 1 Y Performed By: #### L 100.0100, L501.5425, L500.2500 #### [facility] [address] [place], [address] CO2 [Moles/Vol] 28.0 mmol/L Normal 21.0-32.0 [facility] Comment on above: Order Comment: 1 Y Performed By: #### L 100.0100, L501.5425, L500.2500 #### [facility] [address] [place], [address] Creatinine [Mass/Vol] 1.05 mg/dL Normal 0.70-1.30 [facility] Comment on above: Order Comment: 1 Y Result Comment: The validity of the calculated GFR GFRAA in patients over 70 years has not been determined. Clinical correlation is essential. Performed By: #### L 100.0100, L501.5425, L500.2500 #### [facility] [address] [place], [address] ECRCL 108.73 ml/min Normal [facility] Comment on above: Order Comment: 1 Y Performed By: #### L 100.0100, L501.5425, L500.2500 #### [facility] [address] [place], [address] EST GFR - AA 100 mL/min Normal >60 [facility] Comment on above: Order Comment: 1 Y Result Comment: Afri can German GFR Calc Performed By: #### L 100.0100, L501.5425, L500.2500 #### [facility] [address] [place], [address] GAP 2 Low 5-15 [facility] Comment on above: Order Comment: 1 Y Performed By: #### L 100.0100, L501.5425, L500.2500 #### [facility] [address] [place], [address] GFR/1.73 sq M.predicted among non-blacks MDRD (S/P/Bld) [Vol rate/Area] 83 mL/min/{1.73_m2} Normal >60 [facility] Comment on above: Order Comment: 1 Y Result Comment: Non- GFR Calc Performed By: #### L 100.0100, L501.5425, L500.2500 #### [facility] [address] [place], [address] Glucose [Mass/Vol] 98 mg/dL Normal 74-106 [facility] Comment on above: Order Comment: 1 Y Performed By: #### L 100.0100, L501.5425, L500.2500 #### [facility] [address] [place], [address] Potassium [Moles/Vol] 3.9 mmol/L Normal 3.5-5.1 [facility] Comment on above: Order Comment: 1 Y Performed By: #### L 100.0100, L501.5425, L500.2500 #### [facility] [address] [place], [address] Sodium [Moles/Vol] 136 mmol/L Normal 136-145 [facility] Comment on above: Order Comment: 1 Y Performed By: #### L 100.0100, L501.5425, L500.2500 #### [facility] [address] [place], [address] Urea nitrogen [Mass/Vol] 13 mg/dL Normal 7-18 [facility] Comment on above: Order Comment: 1 Y Performed By: #### L 100.0100, L501.5425, L500.2500 #### [facility] [address] [place], [address] CBC W/Diff, Automatedon 12-2 Absolute Lymph 2.45 X10 3/uL Normal 0.83-4.51 [facility] Comment on above: Performed By: #### L 100.0100, L501.5425, L500.2500 #### [facility] [address] [place], [address] Absolute Neut 3.1 X10 3/uL Normal 2.0-7.7 [facility] Comment on above: Performed By: #### L 100.0100, L501.5425, L500.2500 #### [facility] [address] [place], [address] Basophils/100 WBC (Bld) 0.8 % Normal 0-1 [facility] Comment on above: Performed By: #### L 100.0100, L501.5425, L500.2500 #### [facility] [address] [place], [address] Eosinophils/100 WBC (Bld) 2.6 % Normal 0-5 [facility] Comment on above: Performed By: #### L 100.0100, L501.5425, L500.2500 #### [facility] [address] [place], [address] Erythrocyte distribution width (RBC) [Ratio] 12.6 % Normal 11.6-14.6 [facility] Comment on above: Performed By: #### L 100.0100, L501.5425, L500.2500 #### [facility] [address] [place], [address] Hematocrit (Bld) [Volume fraction] 42.3 % Normal 40-54 [facility] Comment on above: Performed By: #### L 100.0100, L501.5425, L500.2500 #### [facility] [address] [place], [address] Hemoglobin (Bld) [Mass/Vol] 13.9 g/dL Normal 13.0-16.5 [facility] Comment on above: Performed By: #### L 100.0100, L501.5425, L500.2500 #### [facility] [address] [place], [address] IG% 0.500 Normal 0.0-0.9 [facility] Comment on above: Result Comment: IG% - Immature Granulocytes (promyelocytes, myelocytes and metamyelocytes) > 1% indicates that a LEFT SHIFT is Present. Performed By: #### L 100.0100, L501.5425, L500.2500 #### [facility] [address] [place], [address] Lymphocytes/100 WBC (Bld) 37.1 % Normal 19-41 [facility] Comment on above: Performed By: #### L 100.0100, L501.5425, L500.2500 #### [facility] [address] [place], [address] MCH (RBC) [Entitic mass] 28.7 pg Normal 27.0-32.0 [facility] Comment on above: Performed By: #### L 100.0100, L501.5425, L500.2500 #### [facility] [address] [place], [address] MCHC (RBC) [Mass/Vol] 32.9 g/dL Normal 32-36 [facility] Comment on above: Performed By: #### L 100.0100, L501.5425, L500.2500 #### [facility] [address] [place], [address] MCV (RBC) [Entitic vol] 87.4 fL Normal 80-94 [facility] Comment on above: Performed By: #### L 100.0100, L501.5425, L500.2500 #### [facility] [address] [place], [address] Monocytes/100 WBC (Bld) 11.8 % High 0-10 [facility] Comment on above: Performed By: #### L 100.0100, L501.5425, L500.2500 #### [facility] [address] [place], [address] Neutrophils/100 WBC (Bld) 47.2 % Normal 47-70 [facility] Comment on above: Performed By: #### L 100.0100, L501.5425, L500.2500 #### [facility] [address] [place], [address] Nucleated RBC (Bld) [#/Vol] 0 10*3/uL Normal 0-5 [facility] Comment on above: Performed By: #### L 100.0100, L501.5425, L500.2500 #### [facility] [address] [place], [address] Platelet mean volume (Bld) [Entitic vol] 8.6 fL Normal 6.2-12.0 [facility] Comment on above: Performed By: #### L 100.0100, L501.5425, L500.2500 #### [facility] [address] [place], [address] Platelets (Bld) [#/Vol] 281 10*3/uL Normal 150-450 [facility] Comment on above: Performed By: #### L 100.0100, L501.5425, L500.2500 #### [facility] [address] [place], [address] RBC (Bld) [#/Vol] 4.84 10*6/uL Normal 4.6-6.2 [facility] Comment on above: Performed By: #### L 100.0100, L501.5425, L500.2500 #### [facility] [address] [place], [address] RDW SD 40.1 fl Normal 35.1-43.9 [facility] Comment on above: Performed By: #### L 100.0100, L501.5425, L500.2500 #### [facility] [address] [place], [address] WBC (Bld) [#/Vol] 6.6 10*3/uL Normal 4.4-11.0 [facility] Comment on above: Performed By: #### L 100.0100, L501.5425, L500.2500 #### [facility] [address] [place], [address] Chest 1 View (Portable)on Chest 1 View (Portable) [facility] [address] [place] [address] Chest 1 View (Portable) MR#: [id number] Acct: [id number] Name: VIC VAIL Rep #: [id number] : 1985 M 38 From: Anne-Marie carolina MD PCP: [facility] Status: DEP ER Study: Chest 1 View (Portable) Date of Exam: 10/17/24 Exam# [id number] Ordering Dr: Chris Reddy DO [id number] HISTORY: chest pain. TECHNIQUE: XR Chest 1 View. COMPARISON: 06/24/2016. FINDINGS: CARDIOMEDIASTINAL BORDERS: Cardiac silhouette within normal limits in size. Mediastinal contour unremarkable. LUNGS: Radiographically clear. PLEURA: No pleural effusion or pneumothorax seen. OSSEOUS STRUCTURES: Unremarkable. RAD/Chest 1 View (Portable) IMPRESSION: No acute cardiopulmonary process identified. Electronically Signed: Anne-Marie Yadav MD at 13:46 EST , CC: Dr. Chris Reddy DO; [facility] Java User Interface Developer: Signed Normal [facility] Emergency Department Summary on 10-17-2024 Emergency Department Summary [facility] Medical Records Department [address] [place] [address] Emergency Department Summary 10/17/24 MR#: [id number] Acct: [id number] Name: VIC VAIL Rep #: [id number] : 1985 38 From: Chris Reddy DO PCP: [facility] Status:DEP ER Location: ED HPI History of Present Illness Chief Complaint: Chest Pain Informant: patient Narrative Narrative: 38-year-old male presenting to the emergency room with a chief complaint of chest pain. Patient states that during the night last night he had several episodes lasting about 30 minutes each. Developed a sharp stabbing pain just to the right of the midline in the lower anterior chest. Patient states when he woke this morning his right thumb was also numb. He states he has had some numbness in his hand intermittently when he wakes up but this seems to be going on longer than normal. He states his other fingers feel fine. He denies any motor loss. He denies any neck pain. No dyspnea. No belching nausea or vomiting. [facility] Medical History Panic attack Kidney stone Home Medications ???Medication ???Instructions ???Recorded ???Last Taken ???Type citalopram 40 mg tablet 60 mg PO DAILY 12/29/19 07/17/20 History bupropion HCl PO DAILY 10/17/24 Unknown History prazosin PO DAILY 10/17/24 Unknown History Allergy/AdvReac Type Severity Reaction Status Date / Time sulfamethoxazole (From Allergy Itching Verified 07/18/20 07:34 Bactrim) trimethoprim (From Bactrim) Allergy Itching Verified 07/18/20 07:34 hydrocodone (From [place]) AdvReac Vomiting Verified 12/24/18 21:59 Surgical History H/O lithotripsy Social History Smoking Status: Former smoker ROS ROS ED Constitutional Constitutional ED: Denies chills, fever(s) or weight loss Eyes Eyes: Denies change in vision or diplopia ENT ENT ED: Denies ear pain, rhinorrhea or sore throat Cardiovascular Cardiovascular: Reports as per HPI and chest pain; Denies orthopnea, palpitations or racing heartbeat Respiratory/Chest Respiratory/Chest: Denies cough, dyspnea or orthopnea Gastrointestinal Gastrointestinal: Denies abdominal pain, diarrhea, nausea or vomiting Genitourinary Genitourinary ED: Denies dysuria, hematuria or urinary frequency Musculoskeletal Musculoskeletal: Denies arthralgias or myalgias Integumentary Denies abscess or rash Neurologic Neurologic: Reports paresthesias; Denies headache(s) or weakness Psychiatric Psychiatric: Denies anxiety, depression, suicidal ideation or suicidal thoughts Endocrine Endocrinology: Denies polydipsia, polyphagia or polyuria Allergic/Immunologic Allergic/Immunologic ED: Denies mouth swelling, tongue swelling or urticaria EXAM Physical Exam Const Vital Signs: 10/17/24 11:59 10/17/24 12:29 10/17/24 12:35 Temperature 97.9 F Temperature Source Oral Pulse Rate 87 Respiratory Rate 16 Respiratory Effort Normal Blood Pressure 127/86 H Blood Pressure Mean 99 Pulse Ox 98 99 Oxygen Delivery Method Room Air Room Air 10/17/24 13:26 Temperature 98.5 F Temperature Source Pulse Rate 63 Respiratory Rate 12 Respiratory Effort Blood Pressure 119/78 Blood Pressure Mean 91 Pulse Ox 97 Oxygen Delivery Method Positive well nourished and well developed General Appearance ED: well developed and NAD HEENT Reports normocephalic, head/scalp atraumatic and moist mucous membranes Eyes PERRL and EOMs intact bilaterally Neck no lymphadenopathy, supple and no JVD Chest Wall inspection of chest normal and palpation of chest normal Resp normal respiratory effort and clear to auscultation bilaterally Cardio regular rate, regular rhythm and no murmurs GI normal to inspection, nondistended, normoactive bowel sounds and non-tender Palpation: soft Back/Spine no CVA tenderness and normal ROM Extremity normal to inspection Extremity Narrative: See neuroexam General Extremety ED: Negative for edema General Extremity: Negative for edema Neuro oriented x3 and CN's II-XII intact bilaterally Neuro Narrative: Patient has normal opposition and movement of the right thumb. He reports decreased sensation circumferentially of the left thumb and over the thenar eminence and on the dorsum of the right hand along the first medic carpal to the level of the snuffbox. There are no rashes. No muscle wasting noted. Sensorium / Orientation: alert Motor Exam: strength 5/5 throughout Psych mental status grossly normal Mood Affect: Negative for depressed or tearful Skin no rashes or lesions noted and no wounds MDM MDM MDM Narrative Medical (more content not included)... Normal [facility] L501.5425on 10-17-2024 TROPONIN-I HS < 3 Low 3.0-78.0 [facility] Comment on above: Order Comment: 1 Y Result Comment: Fernie paul Note: New Test Units and Gender Specific Reference Ranges. For more information see Policy Stat Procedure [place] High Sensitivity Troponin (TNIH) and attachments. Performed By: #### L 100.0100, L501.5425, L500.2500 #### [facility] [address] [place], [address] CNOVon 09-16-2024 CNOV Office Visit (UCWSTR ) ----- VIC VAIL ([id number]) 1985 M Date Time Provider Department 09/16/24 5:15 PM CHERYL HUMPHREY [facility] During your visit today, we recorded the following information about you: Temperature Pulse Respiration Blood pressure 97.3 degrees 83/minute 16/minute 128/82 Weight 90.1 kg Cheryl Humphrey APRN.POLYMERIZATION OVEN OPERATOR 09/16/2024 5:33 PM Signed Subjective HPI Nontoxic-appearing male presents urgent care chief complaint rash. Duration of symptoms 4 to 5 days. Associated symptoms pruritic rash. States was cutting firewood came in contact poison bronwyn. History of poison bronwyn this is similar. No recent medication changes antibiotic use. Overall feels well. No fevers. No nausea vomiting. No pain with rash. Past medical history prescription medications allergies reviewed. BP 128/82 Pulse 83 Temp 36.3 ?C (97.3 ?F) (Tympanic) Resp 16 Wt 90.1 kg (198 lb 10.2 oz) SpO2 97% BMI 25.68 kg/m? .Patient presents with: poison bronwyn: Poison bronwyn all over x 3 days PAST MEDICAL HISTORY Diagnosis Date Bone spur of other site Right shoulder Kidney stone Kidney stones History reviewed. No pertinent surgical history. ALLERGIES Patient has no known allergies. MEDICATIONS dupilumab (DUPIXENT PEN) 300 mg/2 mL pen injection fluticasone (FLONASE) 50 mcg/actuation nasal spray Use 2 Sprays in each nostril once daily. Rinse mouth after use. busPIRone (BUSPAR) 15 mg tablet Take 30 mg by mouth once daily. hydrOXYzine pamoate (VISTARIL) 25 mg capsule Take 25 mg by mouth once daily as needed. prazosin (MINIPRESS) 1 mg cap Take 1 mg by mouth once daily. tamsulosin ER (FLOMAX) 0.4 mg cap Take 0.4 mg by mouth daily at bedtime. albuterol HFA (PROAIR HFA) 90 mcg/actuation inhaler Inhale 2 Puffs as instructed every 4 hours as needed. citalopram (CELEXA) 20 mg tablet Take 40 mg by mouth once daily. fluticasone (FLONASE) 50 mcg/actuation nasal spray Use 2 Sprays in each nostril once daily. Rinse mouth after use. multivitamin tablet Take 1 tablet by mouth once daily. FAMILY HISTORY Problem Relation Age of Onset other (blood clot) Mother Coronary Artery Disease Maternal Grandfather Breast Cancer Paternal Grandmother Social History Tobacco Use Smoking status: Former Current packs/day: 0.00 Types: Cigarettes Quit date: 07/09/2017 Years since quittin.1 Smokeless tobacco: Former Tobacco comments: quit 6 wks ago (06/2017) Vaping Use Vaping status: Former Substance Use Topics Alcohol use: Yes Comment: monthly Drug use: No Review of Systems Constitutional: Negative for chills, fever and malaise/fatigue. HENT: Negative for congestion, ear discharge, ear pain, sinus pain and sore throat. Eyes: Negative for blurred vision, pain, discharge and redness. Respiratory: Negative for cough, hemoptysis, sputum production, shortness of breath, wheezing and stridor. Cardiovascular: Negative for chest pain. Gastrointestinal: Negative for abdominal pain, diarrhea, nausea and vomiting. Musculoskeletal: Negative for myalgias. Skin: Positive for itching and rash. Neurological: Negative for dizziness and headaches. Objective Physical Exam Constitutional: General: He is not in acute distress. Appearance: He is not toxic-appearing. HENT: Head: Normocephalic. Nose: Nose normal. Eyes: Pupils: Pupils are equal, round, and reactive to light. Cardiovascular: Rate and Rhythm: Normal rate. Pulmonary: Effort: Pulmonary effort is normal. No respiratory distress. Musculoskeletal: Cervical back: Normal range of motion. Skin: General: Skin is warm and dry. Comments: Erythematous base rash fluid-filled vesicles maculopapular lesions linear pattern noted. Rash noted on lower arms neck and face. Spares palms and hands. No mucous membrane or desiccation of skin. No cervical adenopathy. Neurological: General: No focal deficit present. Mental Status: He is alert. ASSESSMENT/PLAN: 1. Rash - ICD9: 782.1, ICD10: R21 Diagnosed with rash. Placed on prednisone taper due to facial involvement. Steroid cream sent to pharmacy. Patient was educated on supportive therapies. Patient will follow up with primary care provider as needed. Patient was instructed to immediately proceed to emergency room for any new, worsening, or symptoms lasting longer than anticipated. The patient's clinical presentation is otherwise unremarkable at this time. Based on exam and clinical finding, the patient is stable for discharge. Plan of care was discussed with patient. Patient verbalizes understanding and agrees to plan of care. This note was generated using [employer]og[employer] software. It may contain errors in wording, punctuation, or spelling. Cheryl Humphrey APRN.POLYMERIZATION OVEN OPERATOR Allergies As of Date: 09/16/2024 (No Known Allergies) Date Reviewed: 09/16/2024 Reviewed by: Cheryl Humphrey APRN.POLYMERIZATION OVEN OPERATOR - [facility] (more content not included)... Normal [facility] CT ANGIOGRAM CHEST ABDOMEN P VISon 02-04-2022 CT ANGIOGRAM CHEST ABDOMEN PELVIS EXAMINATION: CT ANGIOGRAM CHEST ABDOMEN PELVIS HISTORY: ORDERING SYSTEM PROVIDED HISTORY: Aortic aneurysm, known or suspected, TECHNOLOGIST PROVIDED HISTORY: Illness/Other Reason for exam: chest pain Encounter Type: Initial Additional signs and symptoms: shortness of breath ORDERING SYSTEM PROVIDED DIAGNOSIS CODES: R07.89 Chest pain, atypical COMPARISON: CT abdomen and pelvis examination dated 10/14/2019. TECHNIQUE: Dose reduction techniques were achieved by using automated exposure control and/or adjustment of mA and/or kV according to patient size and/or use of iterative reconstruction technique. Coronal and sagittal MIP (maximum intensity projection) images were performed. Noncontrast axial CT images through the chest were obtained. Axial CT angiographic images through the chest, abdomen, and pelvis were then obtained with coronal and sagittal reformats. CONTRAST: IOPAMIDOL 76 % INTRAVENOUS SOLUTION - 75 mL, FINDINGS: CTA: There is no evidence of aortic dissection, aortic aneurysm, or an acute aortic injury. The aortic arch vessels are patent. The celiac, superior mesenteric, bilateral renal, inferior mesenteric, bilateral iliac, and imaged bilateral femoral arteries are patent. Chest: The lungs are clear without focal consolidation or suspicious pulmonary nodules. There is no axillary, mediastinal, or hilar lymphadenopathy. There is no pleural or pericardial fluid. The heart size is normal. Abdomen: The liver and spleen enhance homogeneously without focal lesion. There is no intra- or extrahepatic biliary duct dilatation. The gallbladder is unremarkable. There are a few bilateral nonobstructive renal calculi measuring up to 3 mm. Otherwise, the pancreas, adrenal glands, kidneys, and bowel loops including the appendix, are unremarkable. There is no mesenteric or retroperitoneal lymphadenopathy. Pelvis: The bladder and rectum are unremarkable. There is no iliac or inguinal lymphadenopathy. Bone windows show no aggressive osseous lesions. IMPRESSION: 1. No evidence of aortic dissection, aortic aneurysm, or an acute aortic injury. 2. No acute cardiopulmonary abnormality. 3. Normal appendix. 4. Bilateral nonobstructive renal calculi. [facility] Workstation ID: [id number] Dictated by: MINERVA MACKEY on MonFeb 04, 2022 2:31:34 AM EDT Transcribed by: DEONTE BARNEY on MonFeb 04, 2022 2:34:16 AM EDT Finalized by: MINERVA MACKEY on MonFeb 04, 2022 3:06:19 AM EDT [facility] Comment on above: Order Comment: Injur y/Trauma or Illness?:Illness/Other How long have you had these symptoms (acute/chronic)?:Acute Reason for exam?:chest pain Type of Exam?:Initial Additional signs and symptoms?:shortness of breath XR CHEST PA/APon 02-04-2022 XR CHEST PA/AP EXAMINATION: XR CHEST PA/AP 02/04/2022 12:34 AM HISTORY: ORDERING SYSTEM PROVIDED HISTORY: Chest pain, TECHNOLOGIST PROVIDED HISTORY: Illness/Other Reason for Exam: Chest pain Cancer History: U Surgery, Radiation History: U Encounter Type: Initial Additional Signs and Symptoms: Shortness of breath ORDERING SYSTEM PROVIDED DIAGNOSIS CODES: COMPARISON: Chest radiographs dated 03/28/2020. FINDINGS: One view of the chest was obtained. The cardiac silhouette is normal in size. There are a few suspected calcified granulomas in the lungs. There is no significant pneumothorax or pleural effusion. No acute osseous abnormality is seen. IMPRESSION: 1. No acute cardiopulmonary abnormality. [employer] Workstation ID: [id number] Dictated by: MINERVA MACKEY on MonFeb 04, 2022 1:05:20 AM EDT Transcribed by: PARISA HINES on MonFeb 04, 2022 1:07:52 AM EDT Finalized by: MINERVA MACKEY on MonFeb 04, 2022 1:14:10 AM EDT [facility] Comment on above: Order Comment: Injur y/Trauma or Illness?:Illness/Other How long have you had these symptoms (acute/chronic)?:Acute Reason for exam?:chest pain History of cancer?: u Surgeries, chemotherapy, or radiation?:u Type of Exam?:Initial Additional signs and symptoms?:shortness of breath XR L-SPINE AP+LATERALon XR L-SPINE AP+LATERAL EXAMINATION: XR L-SPINE AP+LATERAL CLINICAL HISTORY: arthritis; TECHNOLOGISTS NOTE: COMPARISON: None FINDINGS: The lumbar vertebrae appear intact, without acute fracture, subluxation or dislocation. Disc space at L5-S1 is minimally narrowed. There are small anterior osteophytes at L5. Spinal stimulation device is partially imaged in the right lower quadrant of the abdomen with lead coursing across the midline and terminating in the left sacrum at approximately S3. Sacroiliac joints are symmetric. IMPRESSION: 1. Minimal degenerative changes at the lumbosacral junction. 2. No evidence of acute fracture or malalignment of the lumbar spine. 3. Spinal stimulation device in place, terminating in the left sacrum, incompletely imaged. MACRO: None Normal [employer] XR SHOULDER RIGHTon 10-26-19 XR SHOULDER RIGHT EXAMINATION: XR SHOU LDER RIGHT MINIMUM 2 VIEWS CLINICAL HISTORY: Inflammatory arthritis TECHNOLOGISTS NOTE: COMPARISON: 07/16/2019 FINDINGS: There is interval resection or resorption right distal clavicle with well-corticated margins. The distal clavicle is elevated with respect to the acromion. This is a new finding since 07/16/2019. The right humeral head appears intact and remains located in the glenoid. No definite acute fractures are seen. No radiopaque foreign bodies are seen in the soft tissues. IMPRESSION: 1. Interval resection or resorption of the right distal clavicle. 2. New elevation of the right distal clavicle with respect to the acromion. Please correlate with patient's site of pain. 3. No evidence of acute fracture. MACRO: None Normal [facility] Alcohol, Medicalon 0 Ethanol [Mass/Vol] 84.00 mg/dL High <10.00 [facility] Interpretation and review of laboratory results Abnormal [facility] CBC WITH AUTO DIFFERENTIALon 03-28-2020 Basophils (Bld) [#/Vol] 0.05 10*3/uL [facility] Basophils/100 WBC (Bld) 0.6 % [facility] Eosinophils (Bld) [#/Vol] 0.13 10*3/uL [facility] Eosinophils/100 WBC (Bld) 1.6 % [facility] Erythrocyte distribution width (RBC) [Entitic vol] 12.5 % 11.6 - 14.8 % [facility] Hematocrit (Bld) [Volume fraction] 42.0 % 41 - 53 % [facility] Hemoglobin (Bld) [Mass/Vol] 13.7 g/dL 13.5 - 17.5 g/dL [facility] Immature granulocytes (Bld) [#/Vol] 0.02 10*3/uL [facility] Immature granulocytes/100 WBC (Bld) 0.30 % [facility] Comment on above: The IG parameter is the percentage of metamyelocytes, myelocytes and promyelocytes. An immature granulocyte count (IG) of 1% or more suggests the possibility of infection, an IG count of 3% is very likely related to an infection. Interpretation and review of laboratory results Abnormal [facility] Lymphocytes (Bld) [#/Vol] 3.90 10*3/uL [facility] Lymphocytes/100 WBC (Bld) 49.4 % [facility] MCH (RBC) [Entitic mass] 28.7 pg 26 - 34 pg [facility] MCHC (RBC) [Mass/Vol] 32.6 g/dL 31 - 37 g/dL [facility] MCV (RBC) [Entitic vol] 87.9 fL 80 - 100 fL [facility] Monocytes (Bld) [#/Vol] 0.72 10*3/uL [facility] Monocytes/100 WBC (Bld) 9.1 % [facility] Neutrophils (Bld) [#/Vol] 3.08 10*3/uL [facility] Neutrophils/100 WBC (Bld) 39.0 % [facility] Nucleated RBC (Bld) [#/Vol] 0.00 10*3/uL [facility] Nucleated RBC/100 WBC (Bld) [Ratio] 0.0 % [facility] Platelet mean volume (Bld) [Entitic vol] 9.2 fL Low 9.4 - 12.4 fL [facility] Platelets (Bld) [#/Vol] 329 10*3/uL [facility] RBC (Bld) [#/Vol] 4.78 10*6/uL [facility] WBC (Bld) [#/Vol] 7.90 10*3/uL [facility] Comprehensive Metabolic Pane mara 03-28-2020 Albumin [Mass/Vol] 4.3 g/dL 3.2 - 5.2 g/dL [facility] ALP [Catalytic activity/Vol] 61 U/L 40 - 140 U/L [facility] ALT [Catalytic activity/Vol] 60 U/L 14 - 65 U/L [facility] Anion gap [Moles/Vol] 15 mmol/L 10 - 20 mmol/L [facility] AST [Catalytic activity/Vol] 85 U/L High 0 - 45 U/L [facility] Bilirubin [Mass/Vol] 0.3 mg/dL 0 - 1.3 mg/dL [facility] Calcium [Mass/Vol] 8.8 mg/dL 8.4 - 10. 2 mg/dL [facility] Chloride [Moles/Vol] 105 mmol/L 98 - 108 mmol/L [facility] Creatinine [Mass/Vol] 1.03 mg/dL 0.50 - 1.30 [facility] GFR/1.73 sq M predicted among non-blacks MDRD (S/P/Bld) [Vol rate/Area] The eGFR should be used for monitoring renal function only and not for medication dosing. [facility] GFR/1.73 sq M.predicted CKD-EPI (S/P/Bld) [Vol rate/Area] 93 >=60 mL/min/1.73 m2 [facility] Glucose [Mass/Vol] 93 mg/dL 65 - 99 mg/dL [facility] HCO3 [Moles/Vol] 22 mmol/L 21 - 32 mmol/L [facility] Interpretation and review of laboratory results Abnormal [facility] Potassium [Moles/Vol] 3.6 mmol/L 3.5 - 5.1 mmol/L [facility] Protein [Mass/Vol] 7.9 g/dL 6 - 8 g/dL [place] [facility] Sodium [Moles/Vol] 138 mmol/L 135 - 145 mmol/L [facility] Urea nitrogen [Mass/Vol] 18 mg/dL 8 - 25 mg/dL [facility] Urea nitrogen/Creatinin e [Mass ratio] 17.5 mg/mg [facility] ECG 12-LEADon 03-28-2020 Meghan Morales se, CNP 03/28/2020 1:56 AM EKG 12-lead Date/Time: 03/28/2020 1:27 AM Performed by: Meghan Anderson CNP Authorized by: Meghan Anderson CNP Interpreted by ED attending physician Rhythm: sinus rhythm BPM: 84 Conduction: conduction normal ST Segments: ST segments normal normal WI interval normal QRS interval normal QT interval WI Interval: 134 QRS Interval: 106 QT Interval: 392 Clinical impression: normal ECG Comments: No ST elevation or depression noted at this time [facility] Lipaseon 03-28-2020 Interpretation and review of laboratory results Normal [facility] Lipase [Catalytic activity/Vol] 97 U/L 73 - 393 U/L [facility] Otheron 03-28-2020 Extra Tube Hold for add-ons. [facility] Comment on above: Auto resulted. TROPONINon 03-28-2020 Troponin I.cardiac [Mass/Vol] ng/mL <=45 ng/L [facility] Troponin I.cardiac [Mass/Vol] Normal [facility] XR CHEST AP/PA AND LATon No evidence of acute cardiopulmonary process. [employer] Workstation ID: [id number] [facility] Perez Hutchinson ji Speechq - 03/28/2020 4:10 AM EDT EXAMINATION: XR CHEST AP/PA AND LAT 03/28/2020 1:26 AM HISTORY: ORDERING SYSTEM PROVIDED HISTORY: CP, TECHNOLOGIST PROVIDED HISTORY: Illness/Other Reason for exam: chest pain Cancer History: Surgery, Radiation History: Encounter Type: Initial Additional signs and symptoms: n ORDERING SYSTEM PROVIDED DIAGNOSIS CODES: COMPARISON: None. FINDINGS: Frontal and lateral chest radiographs were obtained. EKG leads project over the frontal radiograph. The cardiomediastinal silhouette is normal. The heart is normal in size. The lungs are clear. There is no focal airspace consolidation. There is no pleural effusion. There is no pneumothorax. The osseous structures are unremarkable. IMPRESSION: No evidence of acute cardiopulmonary process. [employer] Workstation ID: [id number] [facility] EXAMINATION: XR CHES T AP/PA AND LAT 03/28/2020 1:26 AM HISTORY: ORDERING SYSTEM PROVIDED HISTORY: CP, TECHNOLOGIST PROVIDED HISTORY: Illness/Other Reason for exam: chest pain Cancer History: Surgery, Radiation History: Encounter Type: Initial Additional signs and symptoms: n ORDERING SYSTEM PROVIDED DIAGNOSIS CODES: COMPARISON: None. FINDINGS: Frontal and lateral chest radiographs were obtained. EKG leads project over the frontal radiograph. The cardiomediastinal silhouette is normal. The heart is normal in size. The lungs are clear. There is no focal airspace consolidation. There is no pleural effusion. There is no pneumothorax. The osseous structures are unremarkable. [facility] XR CHEST AP/PA AND LAT EXAMINATION: XR CHEST AP/PA AND LAT 03/28/2020 1:26 AM HISTORY: ORDERING SYSTEM PROVIDED HISTORY: CP, TECHNOLOGIST PROVIDED HISTORY: Illness/Other Reason for exam: chest pain Cancer History: Surgery, Radiation History: Encounter Type: Initial Additional signs and symptoms: n ORDERING SYSTEM PROVIDED DIAGNOSIS CODES: COMPARISON: None. FINDINGS: Frontal and lateral chest radiographs were obtained. EKG leads project over the frontal radiograph. The cardiomediastinal silhouette is normal. The heart is normal in size. The lungs are clear. There is no focal airspace consolidation. There is no pleural effusion. There is no pneumothorax. The osseous structures are unremarkable. IMPRESSION: No evidence of acute cardiopulmonary process. [employer] Workstation ID: [id number] Dictated by: PAULA BARRAZA on [facility] Mar 28, 2020 1:45:47 AM EDT Transcribed by: PARISA HINES on [facility] Mar 28, 2020 2:18:44 AM EDT Finalized by: PAULA BARRAZA on [facility] Mar 28, 2020 4:07:41 AM EDT [facility] Comment on above: Order Comment: Injur y/Trauma or Illness?:Illness/Other How long have you had these symptoms (acute/chronic)?:Acute Reason for exam?:chest pain History of cancer?: Surgeries, chemotherapy, or radiation?: Type of Exam?:Initial Additional signs and symptoms?:n Basic Panelon 08-26-2017 Anion gap 7 mmol/L Low 8-20 [facility] Comment on above: Performed By: #### L P8 ####[place] [id number] BUN (urea nitrogen) 17 mg/dL Normal 7-25 [facility] [facility] Comment on above: Performed By: #### L P8 ####[place] [address] BUN/Creatinine Ratio 17 mg/mg Normal 10-20 [facility] Comment on above: Performed By: #### L P8 ####[place] [address] Calcium 9.0 mg/dL Normal 8.5-10.1 [facility] Comment on above: Performed By: #### L P8 ####[address] [address] Chloride 106 mmol/L Normal 98-107 [facility] Comment on above: Performed By: #### L P8 ####[address] [address] CO2 27 mmol/L Normal 21-32 [facility] Comment on above: Performed By: #### L P8 ####[place] [address] Creatinine 0.99 mg/dL Normal 0.67-1.17 [facility] Comment on above: Performed By: #### L P8 ####[place] [address] Glucose mass conc 128 mg/dL High 70-99 [facility] Comment on above: Performed By: #### L P8 ####[place] [address] Potassium molar conc 3.7 mmol/L Normal 3.5-5.1 [facility] Comment on above: Performed By: #### L P8 ####[facility] [place], [place] [address] Sodium 136 mmol/L Normal 136-145 [facility] Comment on above: Performed By: #### L P8 ####[facility] [place], [place] [address] CT ABDOMEN AND PELVIS W/O CO NTRASTon 08-26-2017 CT ABDOMEN AND PELVIS W/O CONTRAST Performed at [facility] APPROVED BY: DANIELLE SOSA MD EXAM: CT of the abdomen and pelvis without contrast. HISTORY: Left flank pain for 2 hours. TECHNIQUE: Unenhanced helical CT of the abdomen and pelvis was performed. Coronal reconstructions performed. CT Dose-Length Product (DLP): 977 mGy*cm CONTRAST: None COMPARISON: None available on the digital archive at the time of this interpretation. FINDINGS: Limitation(s): Exam is limited without contrast. BURLAP MAN: Unremarkable LOWER THORAX: Within normal limits. GENITOURINARY: Right Kidney and Ureter: 5 or 6 punctate nonobstructing renal stones. No ureteral stone. No hydroureteronephrosis. Left Kidney and Ureter: There is moderate hydroureteronephrosis extending into the mid ureter where there is an obstructing 6 x 6 x 7 mm stone. 4 or 5 additional nonobstructing left renal stones, the largest measuring 4 mm in the interpolar region. Urinary Bladder / Urethra: The urinary bladder is decompressed without stone. GENERAL: Liver: Unremarkable unenhanced appearance. Biliary: The gallbladder is present. No biliary dilatation. Spleen: Unremarkable unenhanced appearance. No splenomegaly. Small accessory spleen. Pancreas: Unremarkable unenhanced appearance. No ductal dilatation. Adrenals: Normal morphology. Vasculature: Normal caliber aorta. Mesentery/Peritoneum/Lymp h nodes: No free air. No free fluid. No lymphadenopathy by size criteria. Lack of contrast limits detection of lymph nodes. Pelvis: No abnormality identified. GI tract: No evidence of bowel obstruction. The visualized appendix demonstrates normal caliber without CT evidence of localized inflammatory change. MUSCULOSKELETAL / BODY WALL: No acute CT abnormality identified. IMPRESSION: 7 mm obstructing mid left ureteral stone, resulting in mild to moderate hydroureteronephrosis. Additional bilateral nonobstructing nephrolithiasis. Details and incidental findings as discussed. Normal [facility] Hemogram/Diffon 08-26-2017 Basophils Auto #/vol (Bld) 0.03 thou/cmm Normal 0.00-0.08 [facility] Comment on above: Performed By: #### L CBCD ####[address] [address] Basophils/100 WBC Auto (Bld) 0.4 % Normal [facility] Comment on above: Performed By: #### L CBCD ####[address] [address] Eosinophils 0.31 thou/cmm Normal 0.00-0.41 [facility] Comment on above: Performed By: #### L CBCD ####[address] [address] Eosinophils/100 leukocytes 4.5 % Normal [facility] Comment on above: Performed By: #### L CBCD ####[address] [address] Erythrocyte distribution width Auto Ratio (RBC) 12.3 % Normal 11.5-15.9 [facility] Comment on above: Performed By: #### L CBCD ####[address] [address] Erythrocytes (RBC) 4.49 mil/cmm Low 4.60-6.20 [facility] Comment on above: Performed By: #### L CBCD ####[address] [address] Hematocrit (HCT) 39.3 % Low 42.0-52.0 [facility] Comment on above: Performed By: #### L CBCD ####[address] [address] Hemoglobin mass conc (Bld) 13.1 g/dL Low 14.0-18.0 [facility] Comment on above: Performed By: #### L CBCD ####[address] [address] Lymphocytes 3.16 thou/cmm Normal 1.50-3.65 [facility] Comment on above: Performed By: #### L CBCD ####[address] [address] Lymphocytes/100 leukocytes 45.8 % Normal [facility] Comment on above: Performed By: #### L CBCD ####[place] [address] MCH 29.2 pg Normal 27.0-31.0 [facility] Comment on above: Performed By: #### L CBCD ####[place] [address] MCHC mass conc (RBC) 33.3 % Normal 32.0-36.0 [facility] Comment on above: Performed By: #### L CBCD ####[place] [address] MCV 87.5 fL Normal 80.0-94.0 [facility] Comment on above: Performed By: #### L CBCD ####[place] [address] Monocytes 0.93 thou/cmm Normal 0.20-1.00 [facility] Comment on above: Performed By: #### L CBCD ####[place] [address] Monocytes/100 leukocytes 13.5 % Normal [facility] Comment on above: Performed By: #### L CBCD ####[place] [address] Platelet mean volume (PMV) 9.1 fL Normal 7.1-10.5 [facility] Comment on above: Performed By: #### L CBCD ####[place] [address] Platelets 279 thou/cmm Normal 150-400 [facility] Comment on above: Performed By: #### L CBCD ####[place] [address] Seg Neutrophil 35.8 % Normal [facility] Comment on above: Performed By: #### L CBCD ####[place] [address] Seg. Neut.# 2.47 thou/cmm Low 3.00-5.67 [facility] Comment on above: Performed By: #### L CBCD ####[place] [address] WBC (Leukocytes) 6.9 thou/cmm Normal 4.8-10.8 [facility] Comment on above: Performed By: #### L CBCD ####[place] [address] MDRD eGFRon 08-26-2017 eGFR (non-black) mL/min/{1.73_m2} Normal >60mL/m in/1.7 3m2 [facility] Comment on above: Result Comment: If t he patient is , multiply the result by 1.210. Performed By: #### L GFR ####[place] [address] Urinalysis Routineon 017 Bilirubin Urine Negative Normal Negative [facility] Comment on above: Performed By: #### L URIN ####[place] [address] Ep Cells Urine 0-2 Normal 0-5 [facility] Comment on above: Performed By: #### L URIN ####[place] [address] Hemoglobin,Urine 2+ Abnormal Negative [facility] Comment on above: Performed By: #### L URIN ####[place] [address] Ketone Urine Negative Normal Negative [facility] Comment on above: Performed By: #### L URIN ####[place] [address] Mucus Threads FEW Normal None [facility] Comment on above: Performed By: #### L URIN ####[place] [address] Nitrites Urine Negative Normal Negative [facility] Comment on above: Performed By: #### L URIN ####[place] [address] Protein Urine TRACE Abnormal Negative [facility] Comment on above: Performed By: #### L URIN ####[facility] [place] [address] Specific [place], Ur 1.025 Normal 1.005-1.030 [facility] Comment on above: Performed By: #### L URIN ####[place] [address] Urine, appearance CLEAR Normal [facility] Comment on above: Performed By: #### L URIN ####[place] [address] Urine, color YELLOW Normal [facility] Comment on above: Performed By: #### L URIN ####[place] [address] Urine, erythrocytes in sediment by area 6-12 Abnormal 0-3 [facility] Comment on above: Performed By: #### L URIN ####[place] [address] Urine, glucose presence Negative Normal Negative [facility] Comment on above: Performed By: #### L URIN ####[place] [address] Urine, leukocytes in sedmiment NONE Normal 0-5 [facility] Comment on above: Performed By: #### L URIN ####[place] [address] Urine, pH 6.0 [pH] Normal 5.0-8.0 [facility] Comment on above: Performed By: #### L URIN ####[place] [address] Urobilinogen,Ur 0.2 EU/dL Normal 0.0-1.0 [facility] Comment on above: Performed By: #### L URIN ####[place] [address] WBC (Leukocytes) Negative Normal Negative [facility] Comment on above: Performed By: #### L URIN ####[place] [address] Vital Signs Date Time Vital Sign Value Performing Clinician Facility 04-30-2025 15:51-0400 Body mass index (BMI) [Ratio] 25.34 kg/m2 Paula Jasso MD Work Phone: [facility] 04-30-2025 15:51-0400 Body temperature 98.2 [degF] Paula Jasso MD Work Phone: [facility] 04-30-2025 15:51-0400 Body weight 88.91 kg Paula Jasso MD Work Phone: [facility] 04-30-2025 15:51-0400 Diastolic blood pressure 84 mm[Hg] Paula Jasso MD Work Phone: [facility] 04-30-2025 15:51-0400 Heart rate 63 /min Paula Jasso MD Work Phone: [facility] 04-30-2025 15:51-0400 Respiratory rate 18 /min Paula Jasso MD Work Phone: [facility] 04-30-2025 15:51-0400 SaO2% (BldA) [Mass fraction] 98 % Paula Jasso MD Work Phone: [facility] 04-30-2025 15:51-0400 Systolic blood pressure 147 mm[Hg] Paula Jasso MD Work Phone: [facility] 09-16-2024 17:22-0500 Body mass index (BMI) [Ratio] 25.68 kg/m2 Cheryl Humphrey APRN.POLYMERIZATION OVEN OPERATOR Work Phone: [facility] 09-16-2024 17:22-0500 Body temperature 97.3 [degF] Cheryl Humphrey APRN.POLYMERIZATION OVEN OPERATOR Work Phone: [facility] 09-16-2024 17:22-0500 Body weight 90.1 kg Cheryl Humphrey APRN.POLYMERIZATION OVEN OPERATOR Work Phone: [facility] 09-16-2024 17:22-0500 Diastolic blood pressure 82 mm[Hg] Cheryl Humphrey APRN.POLYMERIZATION OVEN OPERATOR Work Phone: [facility] 09-16-2024 17:22-0500 Heart rate 83 /min Cheryl Humphrey TRACK HOE OPERATOR.POLYMERIZATION OVEN OPERATOR Work Phone: [facility] 09-16-2024 17:22-0500 Respiratory rate 16 /min Cheryl Humphrey TRACK HOE OPERATOR.POLYMERIZATION OVEN OPERATOR Work Phone: [facility] 09-16-2024 17:22-0500 SaO2% (BldA) [Mass fraction] 97 % Cheryl Humphrey TRACK HOE OPERATOR.POLYMERIZATION OVEN OPERATOR Work Phone: [facility] 09-16-2024 17:22-0500 Systolic blood pressure 128 mm[Hg] Cheryl Humphrey TRACK HOE OPERATOR.POLYMERIZATION OVEN OPERATOR Work Phone: [facility] 11-04-2023 10:48-0500 Body height 190 cm Bhavik Philliprossi TRACK HOE OPERATOR-POLYMERIZATION OVEN OPERATOR Work Phone: [facility] 11-04-2023 10:48-0500 Body mass index (BMI) [Ratio] 23.12 kg/m2 Bhavik Phillipjohn pauljemma TRACK HOE OPERATOR-POLYMERIZATION OVEN OPERATOR Work Phone: [facility] 11-04-2023 10:48-0500 Body temperature 98.29 [degF] Bhavik Phillipjohn pauljemma TRACK HOE OPERATOR-POLYMERIZATION OVEN OPERATOR Work Phone: [facility] 11-04-2023 10:48-0500 Body weight 83.46 kg Bhvaik Philliprossi TRACK HOE OPERATOR-POLYMERIZATION OVEN OPERATOR Work Phone: [facility] 11-04-2023 10:48-0500 Diastolic blood pressure 59 mm[Hg] Bhavik Rodriguez TRACK HOE OPERATOR-POLYMERIZATION OVEN OPERATOR Work Phone: [facility] 11-04-2023 10:48-0500 Heart rate 87 /min Bhavik Rodriguez TRACK HOE OPERATOR-POLYMERIZATION OVEN OPERATOR Work Phone: [facility] 11-04-2023 10:48-0500 SaO2% (BldA) [Mass fraction] 96 % Bhavik Rodriguez TRACK HOE OPERATOR-POLYMERIZATION OVEN OPERATOR Work Phone: [facility] 11-04-2023 10:48-0500 Systolic blood pressure 102 mm[Hg] Bhavik Rodriguez TRACK HOE OPERATOR-POLYMERIZATION OVEN OPERATOR Work Phone: [facility] 07-13-2023 16:48-0400 Body temperature 97.2 [degF] Betzy Elena TRACK HOE OPERATOR.POLYMERIZATION OVEN OPERATOR Work Phone: [facility] 07-13-2023 16:48-0400 Body weight 81.92 kg Betzy Elena TRACK HOE OPERATOR.POLYMERIZATION OVEN OPERATOR Work Phone: [facility] 07-13-2023 16:48-0400 Diastolic blood pressure 62 mm[Hg] Betzy Elena TRACK HOE OPERATOR.POLYMERIZATION OVEN OPERATOR Work Phone: [facility] 07-13-2023 16:48-0400 Heart rate 68 /min Betzy Elena TRACK HOE OPERATOR.POLYMERIZATION OVEN OPERATOR Work Phone: [facility] 07-13-2023 16:48-0400 Respiratory rate 20 /min Betzy Elena TRACK HOE OPERATOR.POLYMERIZATION OVEN OPERATOR Work Phone: [facility] 07-13-2023 16:48-0400 SaO2% (BldA) [Mass fraction] 98 % Betzy Elena TRACK HOE OPERATOR.POLYMERIZATION OVEN OPERATOR Work Phone: [facility] 07-13-2023 16:48-0400 Systolic blood pressure 102 mm[Hg] Betzy Elena TRACK HOE OPERATOR.POLYMERIZATION OVEN OPERATOR Work Phone: [facility] 01-12-2022 17:44-0400 Body temperature 97 [degF] Vic Gray MD Work Phone: [facility] 01-12-2022 17:44-0400 Body weight 81.19 kg Vic Gray MD Work Phone: [facility] 01-12-2022 17:44-0400 Diastolic blood pressure 62 mm[Hg] Vic Gray MD Work Phone: [facility] 01-12-2022 17:44-0400 Heart rate 96 /min Vic Gray MD Work Phone: [facility] 01-12-2022 17:44-0400 Respiratory rate 16 /min Vic Gray MD Work Phone: [facility] 01-12-2022 17:44-0400 SaO2% (BldA) [Mass fraction] 97 % Vic Gray MD Work Phone: [facility] 01-12-2022 17:44-0400 Systolic blood pressure 104 mm[Hg] Vic Gray MD Work Phone: [facility] 03-28-2020 01:45-0400 Pulse (Heart Rate) 78 /min Dainajordan [facility] 03-28-2020 01:45-0400 Pulse Oximetry 100 % Daina [facility] 03-28-2020 01:45-0400 Respiratory Rate 15 /min Daina Veronica [facility] 03-28-2020 00:41-0400 BMI (Body Mass Index) 19.48 kg/m2 Dainajordan [facility] 03-28-2020 00:41-0400 Body Temperature 97.59 [degF] Daina [facility] 03-28-2020 00:41-0400 Body weight 72.58 kg [facility] 03-28-2020 00:41-0400 BP Diastolic 82 mm[Hg] [facility]-28-[facility] 00:41-0400 BP Systolic 139 mm[Hg] Daina Veronica [facility] 03-28-2020 00:41-0400 Height 193 cm Dainajordan [facility] Encounters Encounter Date Encounter Type Care Provider Facility Start: 04-30-2025 End: 04-30-2025 ambulatory SELF Facility:[id number] Start: 04-30-2025 End: 04-30-2025 Office outpatient visit 15 minutes Paula Jasos MD Work Phone: [facility] Comment on above: Acute otitis externa of right ear, unspecified type (Primary Dx) Start: 10-17-2024 End: 10-17-2024 [facility] department patient visit [facility] Facility[facility] Start: 09-16-2024 End: 09-16-2024 ambulatory Facility:[facility] Start: 09-16-2024 End: 09-16-2024 Office outpatient visit 15 minutes Cheryl Pattenrashad TRACK HOE OPERATOR.POLYMERIZATION OVEN OPERATOR Work Phone: [facility] Comment on above: Rash (Primary Dx) Start: 11-04-2023 End: 11-04-2023 ambulatory BHAVIK [facility] Start: 11-04-2023 End: 11-04-2023 Patient encounter procedure Bhavik Rodriguez TRACK HOE OPERATOR-POLYMERIZATION OVEN OPERATOR Work Phone: [facility] Comment on above: Acute non-recurrent maxillary sinusitis (Primary Dx) Start: 07-13-2023 End: 07-13-2023 Patient encounter procedure Betzy Wallk TRACK HOE OPERATOR.POLYMERIZATION OVEN OPERATOR Work Phone: [facility] Comment on above: Non-recurrent acute serous otitis media of right ear (Primary Dx) Start: 02-04-2022 End: 02-04-2022 Emergency department patient visit [facility] Start: 01-15-2022 End: 01-15-2022 Emergency department patient visit [facility] Start: 01-12-2022 End: 01-12-2022 Patient encounter procedure Vic Gray MD Work Phone: [facility] Comment on above: Rash (Primary Dx) Start: 10-26-2020 Patient encounter procedure UNKNOWN PROVIDER Facility:[facility] Start: 03-28-2020 End: 03-28-2020 Emergency department patient visit DAINA VERONICA [facility] Start: 03-28-2020 End: 03-28-2020 Emergency department patient visit Dainajordan Veronica Work Phone: [facility] Comment on above: Acute gastritis with out hemorrhage, unspecified gastritis type (Primary Dx) Procedures Date Procedure Procedure Detail Performing Clinician Start: 03-28-2020 Standard chest X-ray Da ying Anderson Work Phone: Start: 03-28-2020 12 lead ECG Meghan Anderson Work Phone: Start: 03-28-2020 LIGHT BLUE TOP Daina Veronica Work Phone: Start: 03-28-2020 LIGHT GREEN TOP Daina monreal Demetrius Armidaoctavio Work Phone: Start: 03-28-2020 RAINBOW DRAW Daina Stack Demetrius Armidaoctavio Work Phone: Start: 03-28-2020 Complete blood count with white cell differential, automated Meghan Anderson Work Phone: Start: 03-28-2020 Complete blood count with white cell differential, manual Meghan Anderson Work Phone: Start: 03-28-2020 Comprehensive metabo lic 2000 panel - Serum or Plasma Meghan Anderson Work Phone: Start: 03-28-2020 Ethanol [Mass/volume ] in Serum or Plasma Meghan Anderson Work Phone: Start: 03-28-2020 Lipase [Enzymatic activity/volume] in Serum or Plasma Meghan Anderson Work Phone: Start: 03-28-2020 Troponin measurement Da ying Anderson Work Phone: Start: 01-28-2019 Adult depression scr eening assessment Vic Gray MD Work Phone: Plan of Treatment Date Care Activity Detail Author Start: 2033 Zoster Vaccines (1 of 2) Zoste r Vaccines (1 of 2) [facility] Start: 02-03-2032 Urine microalbumin profile [facility] Start: 06-23-2025 Influenza vaccination Influenza Vacc ine (#1) [facility] Start: 06-23-2024 Covid-19 Vaccine ( season) Covid-19 Vaccine ( season) [facility] Start: 06-23-2024 Influenza vaccination Influenza Vacc ine (#1) [facility] Start: 06-23-2023 Influenza vaccination Influenza Vacc ine (#1) [facility] Start: 10-23-2022 Depression Assessment Depression Ass essment [facility] Start: 06-23-2021 Influenza vaccination INFLUENZA (#1) [facility] Start: 06-23-2020 Influenza vaccinatio n given Sequential Influenza Vaccine (Season Ended) [facility] Start: 01-29-2020 Adult depression screening assessment DEPRESSION SCREENING [facility] Start: 2018 Lipid 1996 panel - S kristina or Plasma Lipid Screening [facility] Start: 2018 Lipid panel Lipid Screening [facility] Start: 2018 LIPID SCREEN LIPID SCREEN [facility] Start: 02-21-2016 Urine microalbumin profile [facility] Start: 2005 DTaP/Tdap/Td Vaccine s (1 - Tdap) DTaP/Tdap/Td Vaccines (1 - Tdap) [facility] Start: 2002 Hepatitis B Vaccine (1 of 3 - 19+ 3-dose series) Hepatitis B Vaccine (1 of 3 - 19+ 3-dose series) [facility] Start: 2001 Depression Screening Depression Scre ening [facility] Start: 2001 HEPATITIS C SCREENING HEPATITIS C [facility] Start: 2001 Hepatitis C screening Hepatitis C [facility] Start: 2001 HIV SCREENING HIV SCREENING [facility] Start: 2001 HIV screening HIV Screening [facility] Start: 1988 COVID-19 VACCINE (1) COVID-19 VACCIN E (1) [facility] Start: 1986 History and physical examination, annual for health maintenance Wellness Visit [facility] Start: 1984 MMR Vaccines (1 of 1 - Standard series) MMR Vaccines (1 of 1 - Standard series) [facility] Start: 1984 Varicella vaccination Varicell a Vaccines (1 of 2 - 2-dose childhood series) [facility] Start: 05-17-1984 Covid-19 Vaccine (#1) Covid-19 Vacci ne (#1) [facility] Start: 1983 Hepatitis B Vaccine (1 of 3 - 3-dose series) Hepatitis B Vaccine (1 of 3 - 3-dose series) [facility] Start: 1983 Hepatitis B Vaccines (1 of 3 - 3-dose series) Hepatitis B Vaccines (1 of 3 - 3-dose series) [facility] Start: 1983 HIV screening HIV Screening [facility] Start: 1983 Lipid panel Lipid Panel [facility] Start: 1983 Tetanus vaccination Tetanus: Every 1 0yrs [facility] Start: 1983 Yearly Adult Physical Yearly Adult P hysical [facility] Immunizations Immunization Date Immunization Notes Care Provider Chance cotto 02-02-2022 tetanus toxoid, redu jeff diphtheria toxoid, and acellular pertussis vaccine, adsorbed Paula Jasso MD Work Phone: [facility] 07-17-2020 influenza, injectabl e, quadrivalent, preservative free Paula Jasso MD Work Phone: [facility] 07-17-2020 influenza virus vaccine, unspecified formulation Betzy Parker POLYMERIZATION OVEN OPERATOR Work Phone: [facility] 09-04-2019 influenza, seasonal, injectable Vic Gray MD Work Phone: [facility] 06-23-2019 influenza virus vaccine, unspecified formulation Puala Jasso MD Work Phone: [facility] 09-22-2018 influenza virus vaccine, unspecified formulation Paula Jasso MD Work Phone: [facility] 10-04-2017 influenza, seasonal, injectable Vic Gray MD Work Phone: [facility] Work Phone: 07-29-2017 influenza virus vaccine, unspecified formulation Paula Jasso MD Work Phone: [facility] 10-28-2016 influenza, injectabl e, quadrivalent, contains preservative Vic Gray MD Work Phone: [facility] 02-20-2016 tetanus and diphther ia toxoids, adsorbed, preservative free, for adult use (5 Lf of tetanus toxoid and 2 Lf of diphtheria toxoid) Vic Gray MD Work Phone: [facility] Work Phone: 09-22-2012 influenza virus vaccine, unspecified formulation Paula Jasso MD Work Phone: [facility] 12-11-2009 novel [id number], preservative-free, injectable Paula Jasso MD Work Phone: [facility] Payers Date Payer Category Payer Self-pay 2023 [employer] ( and others) [employer] [id number] 2023-Present [address] [place] [address] [id number] 2023 [employer] ( and others) [id number] 2021 Government (not [facility] care or Medicaid) [facility] [id number] 2021 Unknown [facility] [id number] 2021-Present [phone] [address] [place] [address] Indemnity [id number] 2021 Unknown [facility] [id number] 2021-Present [phone] [address] [place] [address] Indemnity [id number] 2021 Unknown [id number] 2017 Unknown [id number] 1983 Unknown [id number] 1985 Unknown [id number] 1985 Unknown [id number] 1985 Unknown [id number] Unknown [id number] Social History Date Type Detail Facility Start: 03-28-2020 End: 09-16-2024 Tobacco smoking status NHIS Former smoker [facility] Work Phone: End: 03-28-2019 History of tobacco use Current smoker [facility] History of tobacco use Snuff User [facility] Start: 03-28-2020 End: 04-30-2025 Alcohol intake Current drinker of alcohol (finding) [facility] Start: 03-28-2020 Alcohol Comment had 6 beers this night [facility] Start: 1985 Sex Assigned At Not on file [facility] Start: 01-02-2022 End: 11-04-2023 Exposure to SARS-CoV-2 (event) Not sure [facility] End: 07-09-2017 History of tobacco use Cigarette Smoker [facility] Work Phone: Start: 12-11-2017 End: 09-30-2020 Cigarettes smoked current (pack per day) - Reported 0.5 [facility] Start: 12-11-2017 End: 09-16-2024 Tobacco use and exposure Former smokeless tobacco user [facility] Work Phone: Start: 08-26-2017 History SDOH Alcohol Comment monthly [facility] Start: 08-26-2017 End: 07-13-2023 Tobacco Comment quit 6 wks ago (06/2017) [facility] Start: 09-30-2020 End: 07-13-2023 Tobacco use panel [facility] Adult Depression Screening Assessment 0 [facility] Start: 11-04-2023 Tobacco smoking status NHIS Never smoked tobacco [facility] Work Phone: Start: 11-04-2023 Tobacco use and exposure Smokeless tobacco non-user [facility] Work Phone: Start: 11-04-2023 Alcohol intake Lifetime non-drinker (finding) [facility] Work Phone: Start: 1985 Sex Assigned At Male [facility] Start: 11-04-2023 Gender identity Identifies as male gender (finding) [facility] Work Phone: Start: 11-04-2023 Sexual orientation Heterosexual (finding) [facility] Work Phone: Functional Status Date Assessment Result Facility 10-10-2014 Are you deaf, or do you have serious difficulty hearing No 10/10/2014 10:08 AM Razia Jameson LPN No [facility] 10-10-2014 Are you blind, or do you have serious difficulty seeing, even when wearing glasses No 10/10/2014 10:08 AM Razia Jameson LPN No [facility] 10-10-2014 Do you have serious difficulty walking or climbing stairs No 10/10/2014 10:08 AM Razia Jameson LPN No [facility] 10-10-2014 Do you have difficul ty dressing or bathing No 10/10/2014 10:08 AM Razia Jameson LPN No [facility] 10-10-2014 Because of a physica l, mental, or emotional condition, do you have difficulty doing errands alone such as visiting a physician's office or shopping No 10/10/2014 10:08 AM Razia Jameson LPN No [facility] Mental Status Date Assessment Result Facility 10-10-2014 Because of a physica l, mental, or emotional condition, do you have serious difficulty concentrating, remembering, or making decisions No 10/10/2014 10:08 AM Razia Jameson LPN No [facility] Clinical Notes 01-12-2022 to 04-30-2025 Paula Jasso MD - 04/30/2025 4:04 PM Deonte Eid LPN - 04/30/2025 3:46 PM Cheryl Dye APRN.POLYMERIZATION OVEN OPERATOR - 09/16/2024 5:23 PM Patrick Rodriguez, TRACK HOE OPERATOR-POLYMERIZATION OVEN OPERATOR - 11/04/2023 10:40 AM EST Note Date & Type Note Facility 04-30-2025 History of Present illness Narrative Vic Vail is a 39 year old male who presents with Ear Pain HPI Patient is a 39-year-old male who presents with right-sided acute ear pain. PAST MEDICAL HISTORY Diagnosis Date Bone spur of other site Right shoulder Kidney stone Kidney stones ACTIVE PROBLEM LIST Lashanda (Obstructive Sleep Apnea) Anxiety Current Outpatient Medications Medication Sig Dispense Refill dupilumab (DUPIXENT PEN) 300 mg/2 mL pen injection busPIRone (BUSPAR) 15 mg tablet Take 30 mg by mouth once daily. hydrOXYzine pamoate (VISTARIL) 25 mg capsule Take 25 mg by mouth once daily as needed. prazosin (MINIPRESS) 1 mg cap Take 1 mg by mouth once daily. citalopram (CELEXA) 20 mg tablet Take 40 mg by mouth once daily. ciprofloxacin-dexAMETHasone (CIPRODEX) 0.3-0.1 % otic suspension Use 4 drops in the right ear two times a day. 7.5 mL 0 No current facility-administered medications for this visit. Social History Tobacco Use Smoking status: Former Current packs/day: 0.00 Types: Cigarettes Quit date: 07/09/2017 Years since quittin.8 Smokeless tobacco: Former Tobacco comments: quit 6 wks ago (06/2017) Vaping Use Vaping status: Former Substance Use Topics Alcohol use: Yes Comment: monthly Drug use: No Alcohol Use: Yes (monthly) Tobacco Use: Types: Cigarettes FAMILY HISTORY Problem Relation Age of Onset other (blood clot) Mother Coronary Artery Disease Maternal Grandfather Breast Cancer Paternal Grandmother ROS Per HPI. Otherwise negative. BP 147/84 Pulse 63 Temp (Src) 98.2 (Temporal) Resp 18 Wt 196 lb (88.9kg) SpO2 98% Physical Exam General: Patient appears well and nontoxic appearing. CV: Regular rate and rhythm. HEENT: Pupils are equal round and reactive to light accommodation. There is no bulging of the tympanic membrane of the right ear. He does have significant erythema and pain with otoscope manipulation of the right ear canal. Procedures ASSESSMENT/PLAN: 1. Acute otitis externa of right ear, unspecified type - ICD9: 380.10, ICD10: H60.501 Patient's tympanic membrane is intact. He does have significant pain in the ear canal, so I will provide him with Ciprodex twice daily for the next 7 days. Red flag signs and symptoms to include significant worsening of his symptoms was discussed as a reason to return to this urgent care for reevaluation. Patient voiced understanding and agreement with the above plan was discharged in stable condition. - CIPROFLOXACIN 0.3 %-DEXAMETHASONE 0.1 % EAR DROPS,SUSPENSION Paula Jasso MD Patient is here with C/O right ear pain x 1 hour. His ear popped when he jumped in the devi. Deonte Cowart LPN April 30, 2025 3:53 PM documented in this encounter [facility] 04-30-2025 Note HNO ID: [id number] Author: PAULA JASSO MD Service: ? Author Type: Physician Type: Progress Notes Filed: 04/30/2025 16:05 Note Text: Vic Vail is a 39 year old male who presents with Ear Pain HPI Patient is a 39-year-old male who presents with right-sided acute ear pain. PAST MEDICAL HISTORY Diagnosis Date Bone spur of other site Right shoulder Kidney stone Kidney stones ACTIVE PROBLEM LIST Lashanda (Obstructive Sleep Apnea) Anxiety Current Outpatient Medications Medication Sig Dispense Refill dupilumab (DUPIXENT PEN) 300 mg/2 mL pen injection busPIRone (BUSPAR) 15 mg tablet Take 30 mg by mouth once daily. hydrOXYzine pamoate (VISTARIL) 25 mg capsule Take 25 mg by mouth once daily as needed. prazosin (MINIPRESS) 1 mg cap Take 1 mg by mouth once daily. citalopram (CELEXA) 20 mg tablet Take 40 mg by mouth once daily. ciprofloxacin-dexAMETHasone (CIPRODEX) 0.3-0.1 % otic suspension Use 4 drops in the right ear two times a day. 7.5 mL 0 No current facility-administered medications for this visit. Social History Tobacco Use Smoking status: Former Current packs/day: 0.00 Types: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
--- NOTE | 2025-06-14 15:32 | RAD_ITS ---
PROCEDURE: CHEST 1 VIEW (PORTABLE) 06/14/2025 REASON FOR EXAM: PALPITATIONS TECHNIQUE: Frontal view of the chest. COMPARISON: 10/17/2024 FINDINGS: The cardiomediastinal silhouette is normal. No consolidation in either lung. No pleural effusion or pneumothorax. No evidence of pulmonary vascular congestion. The bony thorax is intact. RAD/Chest 1 View (Portable) IMPRESSION: No acute process in the chest Reading Location: [id number]
--- NOTE | 2025-06-14 15:32 | EKG12_ITS ---
Test Reason : Blood Pressure : */* mmHG Vent. Rate : 95 BPM Atrial Rate : 95 BPM P-R Int : 120 ms QRS Dur : 84 ms QT Int : 348 ms P-R-T Axes : 85 42 46 degrees QTcB Int : 437 ms Normal sinus rhythm Normal ECG Confirmed by DIVINE SEN, TRE ([id number]), publication editor LEEANNE NASH ([id number]) on 06/16/2025 1:04:59 PM Referred By: AR Confirmed By: TRE HASKINS MD
[2025-06-14 15:42] LABS: Hematocrit 40.5 % (40-54); Hemoglobin 14.0 g/dL (13.0-16.5); Immature Granulocytes Count 0.020 X10^3/uL (0.0-0.0); Mean Corp Hgb Conc 34.6 g/dL (32-36); Mean Corpuscular Volume 84.7 fL (80-94); Mean Platelet Vol. 9.7 fl (6.2-12.0); NRBC Flagged by Analyzer 0 % (0-5); Platelet Count 290 K/mm3 (150-450); RBC Distribution Width CV 12.5 % (11.6-14.6); RBC Distribution Width SD 38.5 fl (35.1-43.9); Red Blood Count 4.78 M/mm3 (4.6-6.2); White Blood Count 6.4 K/mm3 (4.4-11.0)
[2025-06-14] MEDS: 0.9% Normal Saline (1000mL) 1,000 ML 1000 ML IV (15:49)
[2025-06-14 16:10] LABS: AST(SGOT) 23 U/L (<=37); Alanine Aminotransfer ALT/SGPT 21 U/L (<=46); Albumin, Serum 4.6 g/dL (3.5-5.0); Alkaline Phosphatase 56 U/L (40-129); Anion Gap 21 (5-15); BUN 15 mg/dL (4-19); BUN/Creat Ratio 11.8 RATIO (10-20); Calcium,Total 10.0 mg/dL (7.6-11.0); Carbon Dioxide 16.6 mmol/L (21.0-32.0); Chloride 102 mmol/L (98-108); Estimated Creatinine Clearance 90.42 ml/min (50-250); Free T3 3.1 pg/mL (2.18-3.98); Globulin 2.6 g/dL (2.2-4.2); Glucose 104 mg/dL (70-99); Potassium 3.8 mmol/L (3.3-5.1); Troponin T High Sensitivity 9 ng/L (<=22)
--- NOTE | 2025-06-14 16:23 | CM.ED ---
Date of referral: 06/14/25 Reason for referral: Advanced Care Directives (ACD's) not on file. Referred by: Social Work Identification Patient provided consent for visit. Pt Sitter requested patient to bring in a copy of ACD's which patient agreed to. Mar Mathews, ANIMAL ATTENDANT, CAN CLOSING MACHINE TENDER
[2025-06-14 17:42] LABS: Troponin T High Sens 2 HR 20 ng/L (<=22)
== END 2025-06-14 19:23 | disposition home or self-care (01) ==
PROVIDERS: Emergency Provider Emergency Medicine; Visit Provider Emergency Medicine
DX: R00.2 Palpitations (principal); R07.89 Other chest pain; F41.9 Anxiety disorder, unspecified; Z79.899 Other long term (current) drug therapy; Z87.891 Personal history of nicotine dependence
CPT/HCPCS: 71045; 80053; 84439; 84443; 84481; 84484; 85025; 93005; 96360; 96361; 99285; A4216